=== PATIENT | male | born 1965 | race Two or more races ===

== ENCOUNTER 2016-09-28 10:35 | Inpatient (IN) | payer MEDICAID ==
[2016-09-28] VITALS (8 sets, daily range): BP systolic 96–120; BP diastolic 60–94; BMI 32.0
[~2016-09-28] VITALS: Ht 167.6 cm; Wt 90.0 kg
[2016-09-28 11:34] LABS: BASOPHILS 0.1 % (0.0-2.0); EOSINOPHILS 0 % (0-7); HEMATOCRIT 24.1 % (42.0-54.0); IMMATURE GRANULOCYTES 0.2 % (0-5); LYMPHOCYTES 3.9 % (15-50); MCH 24.3 pg (26.0-34.0); MCHC 29.5 g/dL (31.0-37.0); MCV 82.5 fL (80.0-100.0); MEAN PLATELET VOLUME 11.4 fL (7.4-10.4); MONOCYTES 7.4 % (2-11); NEUTROPHILS 88.4 % (40-80); PLATELET COUNT 61 10x3/uL (130-400); RBC 2.92 10x6/uL (4.20-6.10); RDW 18.4 % (11.5-14.5); WBC 8.7 10x3/uL (4.8-10.8)
[2016-09-28 11:37] LABS: HEMOGLOBIN 7.1 g/dL (13.5-17.5)
[2016-09-28 11:45] LABS: ALBUMIN 3.1 g/dL (3.4-5.0); ANION GAP 25.3 mmol/L (8-16); BILIRUBIN - TOTAL 3.6 mg/dL (0.2-1.3); CALCIUM 8.4 mg/dL (8.5-10.1); CARBON DIOXIDE 22.5 mmol/L (21.0-32.0); CREATININE - SERUM 1.8 mg/dL (0.6-1.3); POTASSIUM - SERUM 3.8 mmol/L (3.5-5.1); PROTEIN - SERUM 6.9 g/dL (6.4-8.2)
[2016-09-28 12:08] LABS: APTT 28.1 SECONDS (22.8-39.4); INR 0.98 (0.85-1.17); PROTIME 12.8 SECONDS (11.6-15.0)
[2016-09-28 12:14] LABS: PLATELET ESTIMATE DECREASED
--- NOTE | 2016-09-28 16:50 | NUR ---
FIRST UNIT OF BLOOD COMPLETE. WILL ADMINSTER NEXT DOSE. NO TRANSFUSION REACTION NOTED.
--- NOTE | 2016-09-28 16:54 | NUR ---
RECIEVED PT FROM ER. ATTACHED TO ICU MONITORS. ASSESSMENT COMPLETE PER FLOWSHEET.
--- NOTE | 2016-09-28 17:00 | NUR ---
SPOKE WITH DR. MENENDEZ. ORDERS RECIEVED.
[2016-09-28] MEDS ORDERED: ZOFRAN ODT4 MG/UDTAB (17:14)
[2016-09-28] MEDS ORDERED: PHENERGAN25 M1 PO (17:15)
[2016-09-28] MEDS ORDERED: HYDROCODON-ACE1 EAC9 PO (17:16)
--- NOTE | 2016-09-28 19:30 | NUR ---
RECEIVED PATIENT LAYING IN BED WITH EYES OPEN WATCHING TV, ASSESSMENT COMPLETED PER FLOWSHEET. EYES PERRLA @ 3MM WITH BRISK RESPONSE, R EYE SCLERA IS REDDENED. ORAL/NASAL MUCOSA IS MOIST AND INTACT, TONGUE IS MIDLINE. S1/S2 NOTED WITH PATIENT NSR ON TELEMETRY WITH HR 84, RHYTHMIC AND REGULAR. BREATHING IS EVEN AND UNLABORED, LUNG SOUNDS ARE CLEAR THROUGHOUT ALL PERSON. ABDOMEN IS DISTENDED AND SOFT, NON-TENDER TO PALPATION WITH BOWEL SOUNDS ACTIVE X4. PATIENT VOIDS TO URINAL WITHOUT ASSISTANCE, SANG URINE NOTED. 20G R FA/L FA NOTED, PATENT WITH FLUIDS INFUSING. FULL ROM ALL EXTREMITIES WITH ALL PULSES PALPABLE. PATIENT DENIES PAIN OR OTHER NEEDS AT THIS TIME, ALL VSS AND AMANDA CONITNUE TO MONITOR.
[2016-09-28 19:45] LABS: HEMATOCRIT 22.3 % (42.0-54.0)
--- NOTE | 2016-09-28 21:10 | NUR ---
1 UNIT PRBC'S BEGUN INFUSING, PATIENT AFEBRILE WITH NO COMPLAINTS OF PAIN. ALL VSS AND WILL CONTINUE TO MONITOR.
--- NOTE | 2016-09-28 23:00 | NUR ---
REASSESSMENT COMPLETED PER FLOWSHEET, PATIENT RESTING IN BED WITH EYES CLOSED. 1 UNIT PRBC INFUSING L FOREARM PIV, NO SWELLING OR PAIN AT INFUSION SITE. S1/S2 NOTED WITH PATIENT NSR ON TELEMETRY, RHYTHMIC AND REGULAR. BREATHING IS EVEN AND UNLABORED, LUNG SOUNDS CLEAR THROUGHOUT. PATIENT DENIES PAIN OR OTHER NEEDS AT THIS TIME, ALL VSS AND WILL CONTINUE TO MONITOR.
[2016-09-28 23:27] LABS: APPEARANCE HAZY (CLEAR); BILIRUBIN 1+ (NEGATIVE); COLOR AMBER (YELLOW); GLUCOSE NEGATIVE (NEGATIVE); KETONE SMALL mg/dL (NEGATIVE); LEUKOCYTE ESTERASE TRACE (NEGATIVE); NITRITE NEGATIVE (NEGATIVE); PROTEIN TRACE mg/dL (NEGATIVE)
[2016-09-28 23:31] LABS: AMORPHOUS SEDIMENT <1+ /lpf (NONE SEEN); BACTERIA MANY /hpf (NONE SEEN); EPITHELIAL CELLS OCC /hpf (0-5); GRANULAR CAST 0-5 /lpf (NONE SEEN); MUCUS >1+ /lpf (NONE SEEN); RED CELLS - URINE OCC /hpf (0-5); WAXY CAST OCC /lpf (NONE SEEN)
[2016-09-29] VITALS (23 sets, daily range): BP systolic 100–136; BP diastolic 54–90; Ht 167.6 cm; Wt 90.0 kg
--- NOTE | 2016-09-29 00:55 | NUR ---
2ND UNIT PRBC'S BEGUN INFUSING, PATIENT AFEBRILE WITH NO C/O PAIN AT THIS TIME. ALL VSS AND WILL CONITNUE TO MONITOR.
--- NOTE | 2016-09-29 01:10 | NUR ---
1ST UNIT PRBC'S COMPLETED, NO SIGNS OF REACTION. NO C/O PAIN AND PATIENT REMAINS AFEBRILE AND WILL CONTINUE TO MONITOR.
--- NOTE | 2016-09-29 03:00 | NUR ---
REASSESSMENT COMPLETED PER FLOWSHEET, PATIENT RESTING IN BED WITH EYES CLOSED. LAB AT BEDSIDE, SAMPLE COLLECTED AND SENT. S1/S2 NOTED WITH PATIENT NSR ON TELEMETRY WITH HR 91, RHYTHMIC AND REGULAR. BREATHING IS EVEN AND UNLABORED WITH OXYGEN SAT 98%. PATIENT IS AFEBRILE, DENIES PAIN OR OTHER NEEDS AT THIS TIME. ALL VSS AND WILL CONTINUE TO MONITOR.
[2016-09-29 04:17] LABS: BASOPHILS 0.3 % (0.0-2.0); EOSINOPHILS 0.1 % (0-7); IMMATURE GRANULOCYTES 0.3 % (0-5); LYMPHOCYTES 13.4 % (15-50); MCH 26.3 pg (26.0-34.0); MCHC 31.8 g/dL (31.0-37.0); MCV 82.7 fL (80.0-100.0); MEAN PLATELET VOLUME 11.8 fL (7.4-10.4); MONOCYTES 5.9 % (2-11); RBC 3.35 10x6/uL (4.20-6.10); RDW 17.5 % (11.5-14.5); WBC 7.7 10x3/uL (4.8-10.8)
[2016-09-29 04:21] LABS: HEMATOCRIT 27.7 % (42.0-54.0); HEMOGLOBIN 8.8 g/dL (13.5-17.5)
[2016-09-29 04:22] LABS: PLATELET COUNT 41 10x3/uL (130-400)
[2016-09-29 04:32] LABS: CALCIUM 7.9 mg/dL (8.5-10.1); CHLORIDE - SERUM 103 mmol/L (98-107); POTASSIUM - SERUM 3.5 mmol/L (3.5-5.1); SODIUM 142 mmol/L (136-145); UREA NITROGEN 34 mg/dL (7-18)
[2016-09-29 04:38] LABS: CALC OSMOLALITY 291 mosm/kg (275-300); CARBON DIOXIDE 33.5 mmol/L (21.0-32.0); GLUCOSE 115 mg/dL (74-106); eGFR NON AFRICAN AMERICAN 84 mL/min (90-120)
--- NOTE | 2016-09-29 08:19 | NUR ---
0700 PT AWAKE ALERT AND ORIENTED X4. ABLE TO OBEY COMMANDS WITH NO NEURO DEFICITS. NORMAL SINUS ON MONITOR. PT DENIES PAIN AT THIS TIME AND STATES THAT HE HAS NO COMPLAINTS. NO REACTION TO BLOOD TRANSFUSION NOTED AT THIS TIME. PT UP TO BEDSIDE COMMODE INDEPENDENTLY. VITAL SIGNS STABLE. WILL CONTINUE TO MONITOR
--- NOTE | 2016-09-29 10:58 | NUR ---
Is the patient Alert and Oriented? Yes 0 * How many steps to enter\exit or inside your home? 5 0 * PCP DR. ROCHA 0 * Pharmacy [facility] * Preadmission Environment Home Alone 0 * ADLs Independent 0 * Equipment None 0 * List name and contact numbers for known caregivers / representatives who currently or will assist patient after discharge: EX-: MORGAN [phone] * Community resources currently utilized None 0 * Additional services required to return to the preadmission environment? No 0 * Can the patient safely return to the preadmission environment? Yes 0 * Has this patient been hospitalized within the prior 30 days at any hospital? No SPOKE WITH PATIENT THIS AM. HE IS AWAKE AND ALERT. PATIENT STATES HE LIVES AT HOME ALONE. HIS MOTHER LIVES NEAR HIM BUT SHE IS ON VACATION FOR THE NEXT 2-3 WEEKS. HE STATES THAT HIS EX- IS HIS NEAREST RELATIVE. PATIENT STATES HIS PCP IS DR. ROCHA. HE GETS HIS MEDS FROM [facility]. HE DENIES USE OF ANY EQUIPMENT AND HAS NEVER HAD HOME HEATLH CARE. PATIENT STATES THERE ARE 5 STEPS TO ENTER HIS HOME. PATIENT STATES HE IS INTERESTED IN ASSISTANCE WITH ALCOHOL REHAB. I HAVE CALLED ARUNA TIERNEY, CORE ASSEMBLY SUPERVISOR, AT [facility] [employer]. I HAVE ASKED FOR CALL BACK TO HAVE HER CONTACT PATIENT. I AM PROVIDING THE PATIENT WITH HER PHONE NUMBER WELL FOR FOLLOW UP. NO FURTHER DISCHARGE NEEDS IDENTIFIED.
--- NOTE | 2016-09-29 12:38 | NUR ---
0900 PHONE CONNECTED IN ROOM AND PT TALKING TO SISTER. HAS NO COMPLAINTS AT THIS TIME. VITAL SIGNS STABLE
--- NOTE | 2016-09-29 12:52 | NUR ---
1100 NO CHANGES IN PT STATUS AT THIS TIME. NO BLOOD TRANSFUSION REACTION NOTED. VITAL SIGNS STABLE.
--- NOTE | 2016-09-29 13:00 | NUR ---
1300 NO CHANGES IN PT STATUS AT THIS TIME. WILL START NEXT UNIT OF BLOOD PER ORDER.
--- NOTE | 2016-09-29 15:16 | NUR ---
1500 BLOOD INFUSING AND PT TOLERATING WELL. DENIES PAIN OR DISCOMFORT. VITAL SIGNS STABLE.
[2016-09-29 17:21] LABS: HEMATOCRIT 34.5 % (42.0-54.0); HEMOGLOBIN 11.3 g/dL (13.5-17.5)
--- NOTE | 2016-09-29 18:34 | NUR ---
1700 NO CHANGES FROM PREVIOUS ASSESSMENT. PT STATUS AND VITAL SIGNS STABLE
--- NOTE | 2016-09-29 19:24 | NUR ---
REPORT RECIEVED. ASSESSMENT COMPLETE EPR FLOW SHEET. VSS. DENIES NEEDS. WILL CONTINUE TO MONITOR.
--- NOTE | 2016-09-29 20:50 | NUR ---
COMPLETE BB LINEN CHANGE COMPLETE. NO NEW FINDINGS. VSS. SISTER CALLED GIVEN UPDATE. NEEDS MET.
--- NOTE | 2016-09-29 23:44 | NUR ---
REASSESSMENT COMPLETE PER FLOW SHEET. VSS. NO NEW CHNAGES. PT SLEEPING COMFORTALBY. WILL CONTINUE TO MONITOR.
[2016-09-30] VITALS (11 sets, daily range): BP systolic 102–124; BP diastolic 63–81
--- NOTE | 2016-09-30 01:02 | NUR ---
PT TRANSFERRED TO CVICU AT THIS TIME, TOLERATED WELL
--- NOTE | 2016-09-30 01:30 | NUR ---
AMBULATED TO ICU BED #5. CONNECTED TO MONITOR. NSR IN THE 60'S ON THE MONITOR. ON ROOM AIR IN THE 93-95%. YELLOW SCLERA NOTED TO EYES BILATERALLY. ABDOMEN DISTENDED AND TIGHT TO PALPATION. DENIES PAIN AT PRESENT. AWAKE, ALERT, ORIENTED X4. PALPABLE PERIPHERAL PULSES. LEFT FA 20G SALINE LOCK. RT FS 20G PIV WITH NS @ 50ML/HR AND SANDOSTATIN GTT @ 10ML/HR MIXED 1250MCG/250ML NS. WILL MONITOR.
[2016-09-30 01:31] LABS: HEMATOCRIT 34.8 % (42.0-54.0); HEMOGLOBIN 11.4 g/dL (13.5-17.5)
[2016-09-30 02:13] LABS: ALBUMIN 2.9 g/dL (3.4-5.0); ALKALINE PHOSPHATASE 226 U/L (46-116); ALT (SGPT) 110 U/L (10-68); CALC OSMOLALITY 281 mosm/kg (275-300); CARBON DIOXIDE 33.3 mmol/L (21.0-32.0); CHLORIDE - SERUM 103 mmol/L (98-107); CREATININE - SERUM 0.8 mg/dL (0.6-1.3); GLUCOSE 124 mg/dL (74-106); POTASSIUM - SERUM 3.5 mmol/L (3.5-5.1); PROTEIN - SERUM 6.3 g/dL (6.4-8.2); SODIUM 140 mmol/L (136-145); UREA NITROGEN 19 mg/dL (7-18); eGFR NON AFRICAN AMERICAN > 90 mL/min (90-120)
--- NOTE | 2016-09-30 03:00 | NUR ---
USER EXPERIENCE MANAGER LIGHT. ASSISTED UP TO BATHROOM WITH IV POLE. DISCONNECTED FROM MONITORING EQUIPMENT. DENIES HAVING ANY BM'S OR ANYTHING BLOODY IN NATURE. REPORTS HAVING A BLOODY NOSE AFTER BLOWING HIS NOSE. TISSUES GIVEN FOR FUTURE USE. NO BLOOD SEEN AT THIS TIME. ASSESSMENT COMPLETED. SEE REASSESSMENT FLOWSHEET. APPLIED SCD'S TO LE'S THEN DECIDED TO TAKE PANTS OFF. UNDERWEAR REMAINS ON. APPLIED SCD MACHINE. RECONNECTED TO MONITORING EQUIPMENT. WILL MONITOR.
--- NOTE | 2016-09-30 05:00 | NUR ---
LEMON-GYLCERIN SWABS GIVEN FOR DRY MOUTH DUE TO NPO STATUS. WILL MONITOR.
--- NOTE | 2016-09-30 07:40 | NUR ---
DR. CONNER AT BEDSIDE SPEAKING AT LENGTH WITH PT. NO CURRENT NEEDS.
--- NOTE | 2016-09-30 08:36 | NUR ---
Nutrition follow-up: Pt is now NPO for TIPS vs EGD with banding today Labs reviewed Wt: 198# RDN will monitor patients diet advancement and tolerance.
[2016-09-30 08:53] LABS: HEMATOCRIT 35.3 % (42.0-54.0); HEMOGLOBIN 11.5 g/dL (13.5-17.5)
[2016-09-30 09:15] LABS: ALBUMIN 2.9 g/dL (3.4-5.0); ALKALINE PHOSPHATASE 223 U/L (46-116); ALT (SGPT) 108 U/L (10-68); BILIRUBIN - DIRECT 2.06 mg/dL (0.00-0.30); BILIRUBIN - INDIRECT 0.83 mg/dL (0.00-1.00); BILIRUBIN - TOTAL 2.89 mg/dL (0.2-1.3); PROTEIN - SERUM 6.1 g/dL (6.4-8.2)
[2016-09-30 09:16] LABS: APTT 32.5 SECONDS (22.8-39.4)
[2016-09-30 09:21] LABS: BASOPHILS 0.4 % (0.0-2.0); EOSINOPHILS 1.6 % (0-7); HEMOGLOBIN 11.4 g/dL (13.5-17.5); IMMATURE GRANULOCYTES 0.4 % (0-5); LYMPHOCYTES 16.8 % (15-50); MCH 27.5 pg (26.0-34.0); MCHC 32.6 g/dL (31.0-37.0); MCV 84.3 fL (80.0-100.0); MONOCYTES 4.6 % (2-11); NEUTROPHILS 76.2 % (40-80); RDW 17.3 % (11.5-14.5)
[2016-09-30 09:25] LABS: INR 1.5 (0.85-1.17)
[2016-09-30 09:32] LABS: RBC 4.15 10x6/uL (4.20-6.10); WBC 5.1 10x3/uL (4.8-10.8)
[2016-09-30 09:35] LABS: PLATELET COUNT 40 10x3/uL (130-400)
[2016-09-30 09:35] LABS: CALC OSMOLALITY 284 mosm/kg (275-300); CALCIUM 7.9 mg/dL (8.5-10.1); CHLORIDE - SERUM 104 mmol/L (98-107); CREATININE - SERUM 0.7 mg/dL (0.6-1.3); GLUCOSE 141 mg/dL (74-106); POTASSIUM - SERUM 3.6 mmol/L (3.5-5.1); SODIUM 141 mmol/L (136-145); UREA NITROGEN 18 mg/dL (7-18); eGFR NON AFRICAN AMERICAN > 90 mL/min (90-120)
[2016-09-30 12:34] LABS: APPEARANCE CLEAR (CLEAR); BACTERIA FEW /hpf (NONE SEEN); BILIRUBIN 3+ (NEGATIVE); COLOR ORANGE (YELLOW); EPITHELIAL CELLS 0-5 /hpf (0-5); GLUCOSE NEGATIVE (NEGATIVE); KETONE NEGATIVE (NEGATIVE); LEUKOCYTE ESTERASE TRACE (NEGATIVE); MUCUS >1+ /lpf (NONE SEEN); NITRITE NEGATIVE (NEGATIVE); PROTEIN NEGATIVE (NEGATIVE); RED CELLS - URINE RARE /hpf (0-5); SPECIFIC GRAVITY 1.015 (1.005-1.020); WHITE CELLS - URINE OCC /hpf (0-5)
--- NOTE | 2016-09-30 12:45 | NUR ---
BACK TO BED FROM LUNCH. AWAITING DR. PHILIP. NO CURRENT NEEDS.
--- NOTE | 2016-09-30 15:05 | NUR ---
SPOKE WITH DR. CONNER. STATES HE WOULD LIKE TO SET TIPS PROCEDURE UP OUTPATIENT AND DC PT HOME TODAY. DR. GEMMA LUJAN.
--- NOTE | 2016-09-30 16:09 | NUR ---
ANNE MARIE RN AT BEDSIDE SPEAKING IN DEPTH AND AT LENGTH WITH PT CONCERNING STOPPING DRINKING AND FOLLOW UP APPOINTMENTS FOR MONDAY AT DR. CONNER AND MONDAY AT DR. PHILIP'S OFFICES.
[2016-09-30] MEDS ORDERED: COREG6.25 MG PO ×2 (16:46→17:02)
--- NOTE | 2016-09-30 17:00 | NUR ---
SPOKE WITH JALYN IN SCHEDULING AT DR. CONNER'S OFFICE. APPOINTMENT FOR MONDAY AT 11:50. LABS ORDERED PER DR. PHILIP CBC, CMP, PT/INR, AMMONIA. REQUESTED RESULTS TO BE FAXED TO DR. PHILIP AT [phone]. CONFIRMED AND READ BACK VERIFICATION OF APPOINTMENT TIME, LABS ORDERED AND DR. PHILIP'S FAX NUMBER. MEDICATIONS CALLED IN TO [facility] SPOKE WITH MARI.
[2016-09-30] MEDS ORDERED: PROTONIX40 MG PO (17:03)
--- NOTE | 2016-09-30 17:54 | CN ---
PATIENT NAME:ANITA SIBLEY MEDICAL RECORD: [id number] : 69 LOCATION:CAPOCV05 ADMIT DATE: 09/28/16 ACCOUNT: [id number] CONSULTING PHYSICIAN: JESSY MENENDEZ MD REFERRING PHYSICIAN: MICHAEL CONNER MD DATE OF CONSULTATION: 09/29/2016 REFERRING PHYSICIAN: Robb Lakhani MD (Bill) HISTORY OF PRESENT ILLNESS: The patient is a 51-year-old male with a long history of a known alcoholic cirrhosis with esophageal varices, who was admitted with dizziness and near syncope and hematemesis. Denies melena. He had a recent episode of bleeding about a month or 2 ago and underwent an EGD with banding at that time. That EGD revealed ____. He has had continued problems with alcohol abuse over the past several years that I have been following him. However, he claims he has not drank in the past month. PAST MEDICAL HISTORY: Remarkable for diabetes and the above. ALLERGIES: No known drug allergies. HOME MEDICATIONS: Include p.r.n. hydrocodone and Zofran. He denies NSAID use. He does have a history of reflux esophagitis in the past. SOCIAL HISTORY: The patient is nonsmoker. Again, he does drink alcohol, but apparently stopped a month ago. REVIEW OF SYSTEMS: Noncontributory other than in the HPI. PHYSICAL EXAMINATION: GENERAL: Reveals a middle-aged white male, in mild distress. VITAL SIGNS: Stable. He is afebrile. CHEST: Clear. HEART: Regular rate and rhythm. ABDOMEN: Soft and nontender. EXTREMITIES: No edema. LABORATORY DATA: Reveals normal electrolytes, BUN 30, creatinine 1.8. Total bilirubin 3.6, AST 141, ALT 52, alkaline phosphatase 311, amylase 58, lipase 155, albumin is 3.1. INR 0.98. White count 8000, hematocrit 24, MCV of 82, and platelet count 61,000. Lactic acid is high at 12.2. IMPRESSION: Probable recurrent esophageal variceal bleed due to his known alcoholic cirrhosis. RECOMMENDATION: 1. IV Sandostatin. 2. IV Protonix. 3. Transfuse to hematocrit in the high 20s. 4. In light of his failed banding times 3 in the past, I am going recommend a consult with interventional radiologist for possible TIPS procedure. TRANSINT:[id number] Voice Confirmation ID: [id number] DOCUMENT ID: [id number] CONSULT REPORT [id number] ANITA SIBLEY JOHN MD at 1754 CC: ROBB LAKHANI MD [id number] DICTATION DATE: 09/29/161919 INDUSTRIAL STAFF NURSE: 09/30/169 ADM IN [facility] [address] [place] [address]
--- NOTE | 2016-09-30 18:23 | NUR ---
BILATERAL IV'S DC'D CATHS FULLY INTACT. DC INSTRUCTIONS REVIEWED WITH PT. ALL QUESTIONS ANSWERED. PT VERBALIZES UNDERSTANDING OF INSTRUCTIONS AND REPEATS BACK FOLLOW UP APPOINTMENT TIMES. PT DC'D HOME VIA WHEELCHAIR. STATES HE HAS CALLED HIS FAMILY TO NOTIFY THEM OF HIS DISCHARGE HOME.
== END 2016-09-30 18:31 | disposition home or self-care (01) | DRG 377 ==
LOC: D.ER 10:35 → D.ICU 15:27 → D.CVICU 15:27
PROVIDERS: Emergency Medicine; Internal Medicine Gastroenterology; Physician Assistant; Radiology Vascular & Interventional Radiology; Specialist; ADMIT Family Medicine
DX: K92.2 Gastrointestinal hemorrhage, unspecified (principal); I85.11 Secondary esophageal varices with bleeding; D62 Acute posthemorrhagic anemia; K70.31 Alcoholic cirrhosis of liver with ascites; E11.9 Type 2 diabetes mellitus without complications

== ENCOUNTER 2016-10-06 05:27 | Outpatient (CLI) | payer MEDICAID ==
[~2016-10-06] VITALS: Ht 167.6 cm; Wt 95.5 kg
[~2016-10-06 05:27] MED LIST: COREG6.25 MG PO; HYDROCODON-ACE1 EAC9 PO; PHENERGAN25 M1 PO; PROTONIX40 MG PO; ZOFRAN ODT4 MG/UDTAB
[2016-10-06] MEDS ORDERED: AMOXICILLIN875 MG PO (07:19)
[2016-10-06 07:22] LABS: BASOPHILS 0.7 % (0.0-2.0); EOSINOPHILS 2.3 % (0-7); HEMATOCRIT 33.8 % (42.0-54.0); HEMOGLOBIN 10.7 g/dL (13.5-17.5); IMMATURE GRANULOCYTES 0.2 % (0-5); MCH 27.4 pg (26.0-34.0); MCHC 31.7 g/dL (31.0-37.0); MCV 86.7 fL (80.0-100.0); MEAN PLATELET VOLUME 11.4 fL (7.4-10.4); MONOCYTES 15.9 % (2-11); NEUTROPHILS 56.9 % (40-80); RDW 19.6 % (11.5-14.5); WBC 4.3 10x3/uL (4.8-10.8)
[2016-10-06 07:23] LABS: PLATELET COUNT 122 10x3/uL (130-400)
[2016-10-06 07:29] VITALS: BP 100/50; Ht 167.6 cm; Wt 95.5 kg
[2016-10-06 07:30] LABS: INR 1.18 (0.85-1.17); PROTIME 14.9 SECONDS (11.6-15.0)
[2016-10-06 07:31] LABS: APTT 36.2 SECONDS (22.8-39.4)
[2016-10-06 07:39] LABS: ALBUMIN 2.9 g/dL (3.4-5.0); ALKALINE PHOSPHATASE 247 U/L (46-116); ALT (SGPT) 74 U/L (10-68); BILIRUBIN - TOTAL 1.21 mg/dL (0.2-1.3); CALC OSMOLALITY 276 mosm/kg (275-300); CALCIUM 8.7 mg/dL (8.5-10.1); CARBON DIOXIDE 24.9 mmol/L (21.0-32.0); CHLORIDE - SERUM 103 mmol/L (98-107); CREATININE - SERUM 0.7 mg/dL (0.6-1.3); GLUCOSE 141 mg/dL (74-106); POTASSIUM - SERUM 3.9 mmol/L (3.5-5.1); PROTEIN - SERUM 6.5 g/dL (6.4-8.2); SODIUM 137 mmol/L (136-145); UREA NITROGEN 14 mg/dL (7-18); eGFR NON AFRICAN AMERICAN > 90 mL/min (90-120)
--- NOTE | 2016-10-06 09:08 | NUR ---
RECEIVED FROM IR. MALIA ABDOMINAL DRESSING C/D/I. SEE POST PROCEDURE VITAL SIGN SHEET FOR VITAL SIGNS.
--- NOTE | 2016-10-06 09:49 | NUR ---
UP TO BATHROOM, GAIT STEADY. VOIDED WITHOUT DIFFICULTY. SPOKE WITH CELSO NIETO RN REGARDING DC TIME, STATES 2 HOURS.
[2016-10-07 09:17] LABS: HEPATITIS C ANTIBODY <0.1 (0.0-0.9)
== END 2016-10-06 11:00 | disposition home or self-care (01) ==
LOC: D.OPS 05:27 → D.SP 08:00 → D.OPS 11:00
PROVIDERS: Specialist
DX: R18.8 Other ascites (principal); K74.60 Unspecified cirrhosis of liver

== ENCOUNTER 2016-10-24 05:05 | Inpatient (IN) | payer MEDICAID ==
[~2016-10-24] VITALS: Ht 167.6 cm; Wt 84.1 kg
[2016-10-24] VITALS (9 sets, daily range): BP systolic 97–119; BP diastolic 45–69; Ht 167.6 cm; Wt 84.1 kg
--- NOTE | ~2016-10-24 | HEMODYNAMI ---
PATIENT:ANITA SIBLEY MEDICAL RECORD: [id number] : 69 LOCATION:D. D.2236 ADMISSION DATE: 10/24/16 Generatedon:10/24/201615:10 Patient name: ANITA SIBLEY Patient #: [id number] SSN: D OB: 1965 Date of study: 10/24/2016 Page: Of Hemodynamic Procedure Report Patient Data Patient Demographics Procedure consent was obtained First Name: ANITA Gender: Male Last Name: TOÑITO : 1965 Patient #: [id number] Age: 51 year(s) Race: Other Additional ID: [id number] Contact details Address: [address] [place] [address] State: [place] City: [place] Zip code: [address] Admission Admission Data Admission Date: 10/24/2016 Admission Time: 5:05 Room #: D.2236 Procedure Procedure Types Cath Procedure Peripheral Cath Diagnostic Procedure Miscellaneous Procedure Description Procedure Date Procedure Date: 10/24/2016 Procedure Start Time: 13:07 Procedure Staff Name Function Sridhar Byrne MD Performing Physician Yoko Antonio RT Scrub Haley Beckwith RN Nurse Stefan Blank RT Monitor Girish Patterson MD Additional personnel Procedure Data Cath Procedure Fluoroscopy Diagnostic fluoroscopy Total fluoroscopy Time: time: 13.9 min 13.9 min Diagnostic fluoroscopy Total fluoroscopy dose: 645 dose: 645 mGy mGy Contrast Material Contrast Material Type Amount (ml) Isovue 300 142 Diagnostic catheters Device Type Used For End Catheter Placement Merit UHF Pigtail VESSEL SIZING 5Fr 65CM catheter Merit ULTRA BOLUS FLUSH 5Fr 90CM catheter Procedure Medications Medication Administration Route Dosage Ancef (1Gm/50ml NS) I.V.P.B 1 g Hemodynamics Rest Heart Rate: 47 (bpm) Pressure Samples Time Site Value (mmHg) Purpose Heart Use Rate(bpm) 13:48 Portal 29/27(27) Snapshot 51 14:36 Portal (25) Snapshot 59 14:39 RA 13/11(10) Snapshot 63 Snapshots Pre Cath Intra NCS Post Cath Vital Signs Time Heart Resp SPO2 NIBP (mmHg) Rhythm Pain Sedation Rate (ipm) (%) Status Level (bpm) 12:41:52 48 8 98 115/68(80) NSR 0 (11) 10(A) , No pain 12:46:10 43 22 100 127/71(95) NSR 0 (11) 10(A) , No pain 12:50:28 67 19 90 110/54(73) NSR 0 (11) 10(A) , No pain 12:54:40 52 17 97 118/57(103) NSR 0 (11) 10(A) , No pain 12:58:52 47 11 99 110/63(91) NSR 0 (11) 9(A) , No pain 13:03:02 48 10 98 118/61(94) NSR 0 (11) 9(A) , No pain 13:07:55 49 10 99 114/61(87) NSR 0 (11) 9(A) , No pain 13:12:05 55 11 99 121/63(94) NSR 0 (11) 9(A) , No pain 13:16:17 71 10 95 112/66(87) NSR 0 (11) 9(A) , No pain 13:21:08 50 15 98 117/57(88) NSR 0 (11) 9(A) , No pain 13:25:17 51 12 98 114/67(85) NSR 0 (11) 9(A) , No pain 13:29:27 43 16 99 110/66(83) NSR 0 (11) 9(A) , No pain 13:33:33 60 14 99 119/73(96) NSR 0 (11) 9(A) , No pain 13:37:43 58 21 99 108/68(85) NSR 0 (11) 9(A) , No pain 13:41:51 51 19 98 123/62(92) NSR 0 (11) 9(A) , No pain 13:46:07 52 19 98 113/58(86) NSR 0 (11) 9(A) , No pain 13:50:17 48 21 98 111/61(84) NSR 0 (11) 9(A) , No pain 13:54:25 61 19 96 105/65(89) NSR 0 (11) 9(A) , No pain 13:58:33 43 22 99 110/60(83) NSR 0 (11) 9(A) , No pain 14:02:40 53 20 98 117/65(95) NSR 0 (11) 9(A) , No pain 14:06:50 47 18 99 114/67(88) NSR 0 (11) 9(A) , No pain 14:11:02 44 19 100 106/58(82) NSR 0 (11) 9(A) , No pain 14:15:08 60 20 97 108/68(87) NSR 0 (11) 9(A) , No pain 14:19:14 57 18 96 106/67(95) NSR 0 (11) 9(A) , No pain 14:23:21 51 20 100 117/60(93) NSR 0 (11) 9(A) , No pain 14:27:31 51 18 98 118/65(93) NSR 0 (11) 9(A) , No pain 14:31:39 52 23 99 101/69(87) NSR 0 (11) 9(A) , No pain 14:35:41 56 25 92 117/70(95) NSR 0 (11) 9(A) , No pain 14:39:53 66 24 94 115/63(90) NSR 0 (11) 9(A) , No pain 14:44:07 56 27 94 109/55(85) NSR 0 (11) 9(A) , No pain 14:48:17 58 20 95 111/60(87) NSR 0 (11) 9(A) , No pain 14:52:25 51 18 96 113/67(92) NSR 0 (11) 9(A) , No pain 14:57:24 56 24 94 109/51(63) NSR 0 (11) 9(A) , No pain 15:01:34 52 25 90 113/61(89) NSR 0 (11) 9(A) , No pain 15:09:33 No Cuff NSR 0 (11) 9(A) , No pain Medications Time Medication Route Dose Verified Delivered Reason Notes Effect iveness by by 12:58:44 Ancef I.V.P.B 1 g Girish Stout PROPHYLACTIC (1Gm/50ml Yesenia PATEL) Procedure Log Time Note 12:19:30 Stefan Blank RT (R) (CV) sent for patient. Start room use. 12:19:43 Time tracking: Regular hours 12:19:48 Plan of Care:Hemodynamics will remain stable., Cardiac rhythm will junaid in stable., Comfort level will be maintained., Respiratory function will remain adequate., Patient/ family verbilizes understanding of procedure., Procedure tolerated without complication., Recovers from procedure without complications.. 12:19:56 Warm blankets applied, and arron hugger turned on for patient comfort. 12:19:57 Correct patient and procedure confirmed by team. 12:19:59 Signed procedure consent form obtained from spouse. 12:20:00 ECG and BP/O2 sat monitors applied to patient. 12:20:04 Full Disclosure recording started 12:20:04 ------- 12:20:09 H&P Date Dictated: 10/24/2016 H&P Addendum completed by physician on day of procedure. (MUST COMPLETE FOR ALL OUTPATIENTS). 12:20:11 Pre-procedure instructions explained to patient. 12:20:11 Pre-op teaching completed and patient verbalized understanding. 12:20:13 Family in waiting room. 12:20:14 Patient NPO since Midnight. 12:20:18 ------- 12:20:34 SEE ANESTHESIA NOTE FOR PRE PROCEDURE TIVA 12:20:35 ------- 12:20:41 Use device set IR Diagnostic 12::42 Bag Decanter opened to sterile field. 12:20:42 Sterile Angiographic Pack opened to sterile field. 12:20:43 Acist Manifold opened to sterile field. 12:20:44 Acist Hand Control opened to sterile field. 12:20:45 Acist Syringe opened to sterile field. 12:35:28 Dr Byrne here. Talking with patient 12:40:42 Vital chart was started 12:40:43 Baseline sample Acquired. 12:40:49 Rhythm: sinus bradycardia 12:45:19 HERE FOR ANESTHESIA 12:49:24 Zero performed for pressure channel P1 12:58:44 Ancef (1Gm/50ml NS) 1 g I.V.P.B was administered by Girish Patterson MD; PROPHYLACTIC; 13:06:50 Physician arrived 13:06:51 --------ALL STOP TIME OUT------ 13:06:52 Final Timeout: patient, procedure, and site verified with staff and maxine casillas. All members of the team are in agreement. 13:06:58 Right neck site verified by team. 13:07:02 Right abdomen site verified by team. 13:07:06 Physical assessment completed. ASA score P 3 - A patient with severe sy stemic disease as per Girish Patterson MD. 13:07:11 Sedation plan: IV Moderate Sedation Propofol 13:07:31 Procedure started. 13:07:48 Local anesthetic to right IJ vein with Lidocaine 1% by Sridhar Byrne MD.INITIAL ACCESS ONLY 13:13:07 A Merit [facility] Pigtail VESSEL SIZING 5Fr 65CM catheter was advanced over t he wire and used for . 13:13:08 BasixTOUCH Inflation Syringe opened to sterile field. 13:13:10 TUBING, CONTRAST INJCTN HI PRES opened to sterile field. 13:13:12 TUBING, CONTRAST INJCTN HI PRES opened to sterile field. 13:13:12 [employer] Inc DOC .035 guide wire opened to sterile field. 13:13:13 PERCUTANEOUS ENTRY 19GA needle opened to sterile field. 13:13:14 Cook LATIF 260 guide wire opened to sterile field. 13:24:[address] .035 145 glide wire opened to sterile field. 13:24:11 Terumo 5FR STRAIGHT 65CM glide catheter opened to sterile field. 13:26:09 [place] Sci AMPLATZ Super stiff 260cm guide wire opened to sterile field . 13:29:07 Cook BENTSON 145cm guide wire opened to sterile field. 13:32:41 Terumo 5FR Senior Biostatistician H1 100CM glide catheter opened to sterile field. 13:39:03 Inflation number: 1 A Yeahka Powerflex Pro 8.0 x 40 x 80cm balloon was prepped and advanced across the Undefined1, then inflated to 0 ARCENIO for 0:00 (min:sec). 13:39:32 Zero performed for pressure channel P1 13:39:41 Zero performed for pressure channel P1 13:39:49 Zero performed for pressure channel P1 13:39:55 Zero performed for pressure channel P1 13:40:01 Zero performed for pressure channel P1 13:40:40 Zero performed for pressure channel P1 13:40:48 Zero performed for pressure channel P1 13:41:25 Zero performed for pressure channel P1 13:41:30 Zero performed for pressure channel P1 13:41:44 Zero performed for pressure channel P1 13:42:05 Zero performed for pressure channel P1 13:42:32 Zero performed for pressure channel P1 13:43:38 Zero performed for pressure channel P1 13:43:39 Zero performed for pressure channel P1 13:43:42 Zero performed for pressure channel P1 13:43:45 Zero performed for pressure channel P1 13:43:46 Zero performed for pressure channel P1 13:43:46 Zero performed for pressure channel P1 13:43:47 Zero performed for pressure channel P1 13:43:47 Zero performed for pressure channel P1 13:44:22 Zero performed for pressure channel P1 13:44:23 Zero performed for pressure channel P1 13:44:43 Zero performed for pressure channel P1 13:44:44 Zero performed for pressure channel P1 13:44:45 Zero performed for pressure channel P1 13:44:46 Zero performed for pressure channel P1 13:45:31 Zero performed for pressure channel P1 13:45:46 Zero performed for pressure channel P1 13:45:56 Zero performed for pressure channel P1 13:46:26 Zero performed for pressure channel P1 13:47:19 Zero performed for pressure channel P1 13:47:21 Zero performed for pressure channel P1 13:47:56 Zero performed for pressure channel P1 14:27:41 -ADVANC ED 14:27:43 PCI Cath status Elective 14:34:17 A [employer] ULTRA BOLUS FLUSH 5Fr 90CM catheter was advanced over the wire and used for . 14:35:03 Zero performed for pressure channel P1 14:35:40 Zero performed for pressure channel P1 14:42:21 Procedure ended.(Physican Out) 14:43:51 Fluoroscopy time 13.90 minutes. 14:43:58 Flurop Dose total: 645 14:43:58 Fluoroscopy dose: 645 mGy 14:44:10 Contrast amount:Isovue 300 142ml. 14:44:12 Sharps counted by scrub and verified by R.N. 14:44:18 Post-op/insertion site Right Jugular vein dressed using a 4 x 4 and Teg aderm. 14:44:23 Post right IJ vein:stable 14:44:29 Post-procedure physical assessment completed. ASA score P 3 - A patient with severe systemic disease as per Girish Patterson MD. 14:44:33 Post procedure rhythm: unchanged. 14:44:34 Post procedure instruction explained to patient.Patient verbalizes understanding. 15:09:10 Procedure and supply charges have been captured, reviewed, submitted an d are correct. 15:09:15 Report given to Med/Surg. 15:09:19 Patient transfered to Med/Surg with Bed. 15:10:04 Vital chart was stopped Intervention Summary Intervention Notes Time ActionType Lesion and Equipment Action# Pressure Duration Attributes Used 13:39:03 Inflate Undefined1 Cordis 1 0 00:00 balloon Powerflex Pro 8.0 x 40 x 80cm balloon Device Usage Item Name Manufacture Quantity Catalog Number Hospital Part Current Mini mal Lot# / Charge Number Stock Stock Serial# Code Bag Decanter Microtek 1 2002S [id number] 04990 [id number] 5 Medical Inc. Sterile Cardinal [address] 354061 220540 5 Angiographic Health Pack Acist Acist 1 93813 429543 379592 417245 5 Manifold Medical Systems Inc Acist Hand Acist 1 67982 431656 070401 674572 5 Control Medical Systems Inc Acist Acist 1 72299 066380 398581 236452 20 Syringe Medical Systems Inc Merit UHF Merit 1 7602-20M65 995260 249071 5 Pigtail Medical VESSEL SIZING 5Fr 65CM catheter BasixTOUCH Merit 1 VV7309 096167 735672 942326 5 Inflation Medical Syringe TUBING, Merit 2 [id number] 249741 538321 683316 5 CONTRAST Medical INJCTN HI PRES Cook [facility] 1 D97396 603504 206188 5 [id number] .035 guide wire PERCUTANEOUS [facility] 1 J90942 750689 979108 5 ENTRY 19GA needle Cook [facility] 1 C84056 250073 893509 5 [id number] 260 guide wire Cook [facility] 1 H31884 878451 580572 5 [id number] ROADRUNNER .035 145 glide wire Terumo 5FR Terumo 1 CG505 710344 128101 5 STRAIGHT 65CM glide catheter [employer] [place] 1 [id number] 245792 38505 911438 5 [id number] AMPLATZ Scientific Super stiff 260cm guide wire Cook [facility] 1 S40563 135193 630670 5 [id number] 145cm guide wire Terumo 5FR [place] 1 CG513 000092 784155 5 Senior Biostatistician Scientific H1 100CM glide catheter Cordis Cardinal 1 [id number] 204791 660346 862783 5 Powerflex Health Pro 8.0 x 40 x 80cm balloon Merit ULTRA Merit 1 [id number] 810466 561548 5 BOLUS FLUSH Medical 5Fr 90CM catheter Signature Audit [place] Stage Time Signature Unsigned Intra-Procedure 10/24/2016 Stefan 3:10:01 PM Sh[place]ield RT (R) (CV) Signatures Monitor : Stefan Signature : [place] RT Date : Time : [place] [address] [address] [place] [address]
[~2016-10-24 05:05] MED LIST changes: +AMOXICILLIN875 MG PO
[2016-10-24 06:27] LABS: BASOPHILS 0.6 % (0.0-2.0); EOSINOPHILS 5.2 % (0-7); HEMATOCRIT 37.2 % (42.0-54.0); HEMOGLOBIN 11.9 g/dL (13.5-17.5); IMMATURE GRANULOCYTES 0.2 % (0-5); LYMPHOCYTES 22.7 % (15-50); MCH 27.6 pg (26.0-34.0); MCV 86.3 fL (80.0-100.0); MEAN PLATELET VOLUME 11.9 fL (7.4-10.4); MONOCYTES 8.7 % (2-11); NEUTROPHILS 62.6 % (40-80); PLATELET COUNT 99 10x3/uL (130-400); RBC 4.31 10x6/uL (4.20-6.10); RDW 17.7 % (11.5-14.5); WBC 5.2 10x3/uL (4.8-10.8)
[2016-10-24 06:43] LABS: INR 1.08 (0.85-1.17); PROTIME 13.9 SECONDS (11.6-15.0)
[2016-10-24 06:44] LABS: APTT 37.8 SECONDS (22.8-39.4)
[2016-10-24 06:47] LABS: ALKALINE PHOSPHATASE 244 U/L (46-116); ALT (SGPT) 69 U/L (10-68); CALC OSMOLALITY 278 mosm/kg (275-300); CALCIUM 9.1 mg/dL (8.5-10.1); CARBON DIOXIDE 26.4 mmol/L (21.0-32.0); CHLORIDE - SERUM 104 mmol/L (98-107); CREATININE - SERUM 0.7 mg/dL (0.6-1.3); GLUCOSE 134 mg/dL (74-106); POTASSIUM - SERUM 3.7 mmol/L (3.5-5.1); PROTEIN - SERUM 7.1 g/dL (6.4-8.2); SODIUM 138 mmol/L (136-145); UREA NITROGEN 14 mg/dL (7-18); eGFR NON AFRICAN AMERICAN > 90 mL/min (90-120)
--- NOTE | 2016-10-24 07:14 | NUR ---
0637 PT STATES DID NOT TAKE USUAL HS DOSE OF CARVEDILOL 6.25NG ON 10/23/16. BP 113/62. DR. JENNINGS BEEPED. RETURNED CALL. INFORMED NO BETA KAT LAST NIGHT PER Willard RAHMAN. STATES NO BETA KAT NEEDED AT THIS TIME. Ale BARFIELD R.N.
--- NOTE | 2016-10-24 07:19 | NUR ---
0719 PLATELET COUNT 99. CALLED TO CELSO NIETO R.N. SPECIALS/RADIOLOGY. Ale BARFIELD R.N.
--- NOTE | 2016-10-25 00:51 | NUR ---
2000)REC'D. IN BED DRSG DRY AND INTACT TO RT. NECK.02 SATS 96%. ABD LARGELY DISTENDED AND FIRM. DENIES NAUSEA AT PRESENT TIME.WILL CONTINUE TO MONTOR FOR ANY CHGES. AND FOLLOW CURRENT PLAN OF CARE.
[2016-10-25 01:32] VITALS: BP 111/52
[2016-10-25 04:00] VITALS: BP 126/57
--- NOTE | 2016-10-25 04:15 | NUR ---
RESTING WITH EYES CLOSED, RESP WITH EASE, NO DISTRESS NOTED, SR'S UP, CL IN REACH
[2016-10-25 04:58] LABS: BASOPHILS 0.3 % (0.0-2.0); HEMATOCRIT 38.1 % (42.0-54.0); HEMOGLOBIN 12.1 g/dL (13.5-17.5); IMMATURE GRANULOCYTES 0.3 % (0-5); LYMPHOCYTES 17.1 % (15-50); MCH 27.3 pg (26.0-34.0); MCHC 31.8 g/dL (31.0-37.0); MEAN PLATELET VOLUME 11.8 fL (7.4-10.4); NEUTROPHILS 74.3 % (40-80); RBC 4.43 10x6/uL (4.20-6.10); RDW 17.6 % (11.5-14.5)
[2016-10-25 05:13] LABS: PLATELET COUNT 121 10x3/uL (130-400); WBC 7.9 10x3/uL (4.8-10.8)
[2016-10-25 05:14] LABS: ALBUMIN 2.9 g/dL (3.4-5.0); ALKALINE PHOSPHATASE 190 U/L (46-116); ALT (SGPT) 68 U/L (10-68); BILIRUBIN - DIRECT 0.43 mg/dL (0.00-0.30); BILIRUBIN - INDIRECT 0.63 mg/dL (0.00-1.00); BILIRUBIN - TOTAL 1.06 mg/dL (0.2-1.3); CALC OSMOLALITY 274 mosm/kg (275-300); CALCIUM 8.8 mg/dL (8.5-10.1); CARBON DIOXIDE 25.8 mmol/L (21.0-32.0); CHLORIDE - SERUM 103 mmol/L (98-107); CREATININE - SERUM 0.7 mg/dL (0.6-1.3); GLUCOSE 132 mg/dL (74-106); POTASSIUM - SERUM 3.5 mmol/L (3.5-5.1); PROTEIN - SERUM 6.7 g/dL (6.4-8.2); SODIUM 137 mmol/L (136-145); eGFR NON AFRICAN AMERICAN > 90 mL/min (90-120)
[2016-10-25 05:15] LABS: UREA NITROGEN 9 mg/dL (7-18)
--- NOTE | 2016-10-25 07:40 | NUR ---
PT ASSESSMENT COMPLETE AWAKE AND ALERT ORIETED X 3 COMPLAINS OF TENDERNESS TO ABDOMEN WITH PALPATION. DRESSING CLEAN DRY AND INTACT TO RIGHT NECK
[2016-10-25 08:22] VITALS: BP 122/63
[2016-10-25] MEDS ORDERED: CHRONULAC30 ML PO (10:30)
--- NOTE | 2016-10-25 12:48 | NUR ---
PT DISCHARGED EXPRESSED UNDERSTANDING OF DISCHARGE INSTRUCTIONS. PIV DISCONTINUED NO DIFFICULTY NOTED TOLERATED WELL. DISCHARGED VIA WHEELCHAIR TO PRIVATE VEHICLE.
== END 2016-10-25 12:49 | disposition home or self-care (01) | DRG 407 ==
LOC: D.SDCHOLD 05:05 → D.MS 14:53
PROVIDERS: ADMIT Specialist
PROC: 06183DY (ICD-10-PCS; principal; 2016-10-24 13:00)
DX: K70.31 Alcoholic cirrhosis of liver with ascites (principal)

== ENCOUNTER → 2016-10-27 11:05 | Outpatient (CLI) | payer MEDICAID ==
[2016-10-24 15:37] VITALS: BMI 29.9
[~2016-10-27 11:05] MED LIST changes: +CHRONULAC30 ML PO; +CIPRO500 MG PO; +FLAGYL500 MG PO; +XIFAXAN550 MG PO
[2016-10-27 11:33] LABS: BASOPHILS 0.4 % (0.0-2.0); EOSINOPHILS 3.4 % (0-7); HEMATOCRIT 40.3 % (42.0-54.0); IMMATURE GRANULOCYTES 0.2 % (0-5); LYMPHOCYTES 21.4 % (15-50); MCH 28.1 pg (26.0-34.0); MCHC 32.3 g/dL (31.0-37.0); MCV 87.2 fL (80.0-100.0); MEAN PLATELET VOLUME 11.4 fL (7.4-10.4); MONOCYTES 9.5 % (2-11); NEUTROPHILS 65.1 % (40-80); PLATELET COUNT 125 10x3/uL (130-400); RBC 4.62 10x6/uL (4.20-6.10); RDW 18.2 % (11.5-14.5); WBC 8.3 10x3/uL (4.8-10.8)
[2016-10-27 11:47] LABS: ALBUMIN 3.3 g/dL (3.4-5.0); ALKALINE PHOSPHATASE 255 U/L (46-116); ALT (SGPT) 75 U/L (10-68); BILIRUBIN - TOTAL 1.45 mg/dL (0.2-1.3); CALC OSMOLALITY 274 mosm/kg (275-300); CALCIUM 9.7 mg/dL (8.5-10.1); CARBON DIOXIDE 27.3 mmol/L (21.0-32.0); CHLORIDE - SERUM 103 mmol/L (98-107); CREATININE - SERUM 0.7 mg/dL (0.6-1.3); GLUCOSE 114 mg/dL (74-106); POTASSIUM - SERUM 4.2 mmol/L (3.5-5.1); PROTEIN - SERUM 7.9 g/dL (6.4-8.2); SODIUM 137 mmol/L (136-145); UREA NITROGEN 12 mg/dL (7-18); eGFR NON AFRICAN AMERICAN > 90 mL/min (90-120)
== END | disposition home or self-care (01) ==
LOC: D.LAB 10:00
PROVIDERS: Radiology Diagnostic Radiology
DX: K74.60 Unspecified cirrhosis of liver (principal)

== ENCOUNTER → 2016-11-01 10:22 | Outpatient (CLI) | payer MEDICAID ==
[2016-10-24 15:37] VITALS: BMI 29.9
[~2016-11-01 10:22] MED LIST changes: -CIPRO500 MG PO; -FLAGYL500 MG PO; -XIFAXAN550 MG PO
== END | disposition home or self-care (01) ==
LOC: D.LAB 08:00
DX: K74.60 Unspecified cirrhosis of liver (principal)

== ENCOUNTER 2016-11-03 08:00 | Observation (INO) | payer MEDICAID ==
[~2016-11-03] VITALS: Ht 167.6 cm; Wt 82.8 kg
[2016-11-03 11:54] LABS: ALBUMIN 3.2 g/dL (3.4-5.0); ALKALINE PHOSPHATASE 250 U/L (46-116); ALT (SGPT) 58 U/L (10-68); CALC OSMOLALITY 271 mosm/kg (275-300); CALCIUM 9.6 mg/dL (8.5-10.1); CARBON DIOXIDE 22.5 mmol/L (21.0-32.0); CHLORIDE - SERUM 101 mmol/L (98-107); CREATININE - SERUM 0.8 mg/dL (0.6-1.3); GLUCOSE 158 mg/dL (74-106); POTASSIUM - SERUM 4.3 mmol/L (3.5-5.1); PROTEIN - SERUM 7.6 g/dL (6.4-8.2); SODIUM 134 mmol/L (136-145); UREA NITROGEN 16 mg/dL (7-18); eGFR NON AFRICAN AMERICAN > 90 mL/min (90-120)
--- NOTE | 2016-11-03 16:38 | NUR ---
DIRECT ADMIT WALKING BEHIND HOSPITAL STAFF TO ROOM, GAIT IS STEADY. WILL ADMIT.
[2016-11-03 16:47] VITALS: BP 140/71; Ht 167.6 cm; Wt 82.8 kg
--- NOTE | 2016-11-03 17:13 | NUR ---
PLACED A 22G IV IN PT'S RIGHT FOREARM. PT TOLERATED WELL.
--- NOTE | 2016-11-03 19:30 | NUR ---
RECEIVED REPORT FROM DAY NURSE, PT DENIES ANY NEEDS, CALL LIGHT IN REACH, BED IS LOW, SRX2, WILL CONTINUE TO MONITOR
[2016-11-03 20:00] VITALS: BP 122/56
[2016-11-04] VITALS: BP 126/66
--- NOTE | 2016-11-04 04:17 | NUR ---
STITCH SEPARATOR AT BEDSIDE TO OBTAIN VITALS, CALL LIGHT IN REACH. WILL CONTINUE WITH PLAN OF CARE.
[2016-11-04 04:53] LABS: EOSINOPHILS 1.7 % (0-7); HEMATOCRIT 35.3 % (42.0-54.0); HEMOGLOBIN 11.6 g/dL (13.5-17.5); LYMPHOCYTES 30.6 % (15-50); MCH 27.8 pg (26.0-34.0); MCHC 32.9 g/dL (31.0-37.0); MCV 84.7 fL (80.0-100.0); MEAN PLATELET VOLUME 11.8 fL (7.4-10.4); MONOCYTES 9.6 % (2-11); NEUTROPHILS 57.1 % (40-80); PLATELET COUNT 105 10x3/uL (130-400); RBC 4.17 10x6/uL (4.20-6.10); RDW 17.9 % (11.5-14.5); WBC 4.2 10x3/uL (4.8-10.8)
[2016-11-04 04:57] LABS: INR 1.18 (0.85-1.17); PROTIME 14.9 SECONDS (11.6-15.0)
--- NOTE | 2016-11-04 05:04 | NUR ---
SLEEPING, CALL LIGHT IN REACH, BED IS LOW, WILL CONTINUE TO MONITOR
[2016-11-04 05:24] LABS: ALBUMIN 2.8 g/dL (3.4-5.0); ALKALINE PHOSPHATASE 229 U/L (46-116); ALT (SGPT) 53 U/L (10-68); BILIRUBIN - TOTAL 1.11 mg/dL (0.2-1.3); CALC OSMOLALITY 267 mosm/kg (275-300); CALCIUM 8.9 mg/dL (8.5-10.1); CARBON DIOXIDE 22.4 mmol/L (21.0-32.0); CHLORIDE - SERUM 101 mmol/L (98-107); CREATININE - SERUM 0.7 mg/dL (0.6-1.3); GLUCOSE 144 mg/dL (74-106); PROTEIN - SERUM 6.8 g/dL (6.4-8.2); SODIUM 133 mmol/L (136-145); eGFR NON AFRICAN AMERICAN > 90 mL/min (90-120)
[2016-11-04 05:25] LABS: UREA NITROGEN 10 mg/dL (7-18)
--- NOTE | 2016-11-04 07:20 | NUR ---
AM ROUNDING MADE WITH PATIENT SNORING WITH EYES CLOSED. RESP ARE EVEN AND NON LABORED. BED ALARM IS SET. RIGHT FA SEEN WITH 1/2 NS W 20KL INFUSING AT 120 CC/HR. ON ROOM AIR. WILL CONTINUE TO FOLLOW.
[2016-11-04 08:19] VITALS: BP 86/47
[2016-11-04] MEDS ORDERED: CIPRO500 MG PO (09:21)
[2016-11-04] MEDS ORDERED: FLAGYL500 MG PO (09:21)
[2016-11-04] MEDS ORDERED: XIFAXAN550 MG PO (09:21)
--- NOTE | 2016-11-04 12:13 | CN ---
PATIENT NAME:ANITA SIBLEY MEDICAL RECORD: [id number] : 69 LOCATION:[address] ADMIT DATE: ACCOUNT: [id number] CONSULTING PHYSICIAN: JESSY MENENDEZ MD REFERRING PHYSICIAN: MICHAEL AN MD DATE OF CONSULTATION: 11/03/2016 Gastroenterology Consultation REFERRING PHYSICIAN: Michael An MD. HISTORY OF PRESENT ILLNESS: The patient is a 51-year-old white male well known to me with history of alcoholic cirrhosis with subsequent problems with ascites and variceal bleeding, status post recent TIPS procedure a couple weeks ago, he is now admitted with some recent confusion, namely not remembering coming home from work last night and a somewhat elevated ammonia level of ____. He also had some chills. For complete consultation, see my note from 2 weeks ago, which was extensive regarding his past medical and past surgical history. ALLERGIES: No known drug allergies. HOME MEDICATIONS: Include lactulose 30 mL b.i.d., Protonix 40 mg daily and Coreg. FAMILY HISTORY: Negative for GI disease. SOCIAL HISTORY: The patient quit drinking several months ago. He is non tobacco user. REVIEW OF SYSTEMS: Noncontributory other than in the HPI. PHYSICAL EXAMINATION: GENERAL: Reveals an alert and oriented male in no acute distress. VITAL SIGNS: Stable. He is afebrile. CHEST: Clear. HEART: Regular rate and rhythm. ABDOMEN: Soft, nontender. EXTREMITIES: No edema. There are no signs of ascites. LABORATORY DATA: Reveals normal electrolytes, BUN 16, creatinine 0.8. Total bilirubin is 1.5, AST 70, ALT 58, alkaline phosphatase 250, ammonia level was 93, albumin is 3.2. Alcohol level 0. IMPRESSION: Hepatic encephalopathy, status post transjugular intrahepatic portosystemic shunt. RECOMMENDATION: 1. Hydrate. 2. Add Xifaxan 550 mg b.i.d. 3. Empiric Flagyl and Rocephin for now. I have counseled the patient in light of his recent chills. 4. Okay to continue lactulose. I titrated it to 2-3 soft stools per day. It would not titrate to ammonia level. CONSULT REPORT [id number] ANITA SIBLEY TRANSINT:[id number] Voice Confirmation ID: [id number] DOCUMENT ID: [id number] JESSY MENENDEZ MD at 1213 CC: MICHAEL AN MD [id number] DICTATION DATE: 11/03/16 1858 ZOOGLER: 11/03/162045 [id number] [place] [address]
[2016-11-04 12:44] VITALS: BP 100/79
--- NOTE | 2016-11-04 12:55 | NUR ---
SPOKE WITH DR CONNER AND WAS GIVEN THE FINALLY DISCHARGE ORDERS.
--- NOTE | 2016-11-04 14:11 | NUR ---
1330-VERBAL AND WRITTEN DISCHARGE INSTRUCTIONS GIVEN TO PATIENT. SALINE LOCK REMOVED WITH CATH TIP INTACT. DISCHARGED HOME VIA WHEELCHAIR AND TAXI.
== END 2016-11-04 14:15 | disposition home or self-care (01) ==
LOC: D.US 08:00 → D.M2 08:19 → D.US 09:00 → OBSVTIME 15:40 → D.M2 15:40 → D.US 16:28 → D.M2 11-04 14:15 → D.US 11-07 08:30
PROVIDERS: Family Medicine; Internal Medicine Gastroenterology; ADMIT Specialist
DX: K72.90 Hepatic failure, unspecified without coma (principal); K70.30 Alcoholic cirrhosis of liver without ascites; I10 Essential (primary) hypertension; I25.10 Atherosclerotic heart disease of native coronary artery without angina pectoris; Z95.5 Presence of coronary angioplasty implant and graft; F41.9 Anxiety disorder, unspecified

== ENCOUNTER 2016-12-22 15:21 | Emergency (ER) | payer MEDICAID ==
[2016-11-03 16:47] VITALS: BMI 29.2
[~2016-12-22 15:21] MED LIST changes: +CIPRO500 MG PO; +FLAGYL500 MG PO; +XIFAXAN550 MG PO
[2016-12-22 16:05] LABS: BASOPHILS 0.3 % (0-2); EOSINOPHILS 0.3 % (0-7); HEMATOCRIT 32.9 % (42.0-54.0); HEMOGLOBIN 10.8 g/dL (13.5-17.5); IMMATURE GRANULOCYTES 0.3 % (0-5); LYMPHOCYTES 41.7 % (15-50); MCH 25.9 pg (26.0-34.0); MCHC 32.8 g/dL (31.0-37.0); MCV 78.9 fL (80.0-100.0); MEAN PLATELET VOLUME 9.4 fL (7.4-10.4); MONOCYTES 2.9 % (2-11); NEUTROPHILS 54.5 % (40-80); RBC 4.17 10x6/uL (4.20-6.10); RDW 13.6 % (11.5-14.5); WBC 3.5 10x3/uL (4.8-10.8)
[2016-12-22 16:14] LABS: PLATELET COUNT 41 10x3/uL (130-400)
[2016-12-22 16:17] LABS: INR 1.15 (0.85-1.17); PROTIME 14.6 SECONDS (11.6-15.0)
[2016-12-22 16:18] LABS: APTT 37.2 SECONDS (22.8-39.4)
[2016-12-22 16:30] LABS: ALBUMIN 4.1 g/dL (3.4-5.0); ALKALINE PHOSPHATASE 283 U/L (46-116); ALT (SGPT) 54 U/L (10-68); BILIRUBIN - TOTAL 1.57 mg/dL (0.2-1.3); CALC OSMOLALITY 283 mosm/kg (275-300); CALCIUM 8.4 mg/dL (8.5-10.1); CARBON DIOXIDE 25.9 mmol/L (21.0-32.0); CHLORIDE - SERUM 102 mmol/L (98-107); CREATININE - SERUM 0.7 mg/dL (0.6-1.3); GLUCOSE 142 mg/dL (74-106); POTASSIUM - SERUM 3.7 mmol/L (3.5-5.1); PROTEIN - SERUM 8.2 g/dL (6.4-8.2); SODIUM 142 mmol/L (136-145); UREA NITROGEN 11 mg/dL (7-18); eGFR NON AFRICAN AMERICAN > 90 mL/min (90-120)
[2016-12-22 16:36] LABS: LIPASE 246 U/L (73-393)
[2016-12-22 16:39] LABS: PLATELET ESTIMATE DECREASED
== END 2016-12-22 18:39 | disposition home or self-care (01) ==
LOC: D.ER 15:21
PROVIDERS: Emergency Medicine
DX: F10.10 Alcohol abuse, uncomplicated (principal); K76.9 Liver disease, unspecified; I95.9 Hypotension, unspecified; E11.9 Type 2 diabetes mellitus without complications

== ENCOUNTER → 2016-12-23 13:42 | Emergency (ER) | payer MEDICAID ==
[2016-11-03 16:47] VITALS: BMI 29.2
[2016-12-23 16:05] LABS: ALKALINE PHOSPHATASE 272 U/L (46-116); ALT (SGPT) 58 U/L (10-68); AMYLASE - SERUM 98 U/L (25-115); BILIRUBIN - TOTAL 1.88 mg/dL (0.2-1.3); CALC OSMOLALITY 278 mosm/kg (275-300); CALCIUM 8.8 mg/dL (8.5-10.1); CARBON DIOXIDE 26.1 mmol/L (21.0-32.0); CHLORIDE - SERUM 100 mmol/L (98-107); CREATININE - SERUM 0.7 mg/dL (0.6-1.3); GLUCOSE 124 mg/dL (74-106); LIPASE 191 U/L (73-393); POTASSIUM - SERUM 3.5 mmol/L (3.5-5.1); PROTEIN - SERUM 8.1 g/dL (6.4-8.2); SODIUM 140 mmol/L (136-145); UREA NITROGEN 11 mg/dL (7-18); eGFR NON AFRICAN AMERICAN > 90 mL/min (90-120)
[2016-12-23 16:07] LABS: BASOPHILS 0.3 % (0-2); EOSINOPHILS 0 % (0-7); HEMATOCRIT 30.3 % (42.0-54.0); IMMATURE GRANULOCYTES 0.3 % (0-5); LYMPHOCYTES 32.5 % (15-50); MCH 25.9 pg (26.0-34.0); MCV 78.5 fL (80.0-100.0); MEAN PLATELET VOLUME 10.5 fL (7.4-10.4); MONOCYTES 4.3 % (2-11); NEUTROPHILS 62.6 % (40-80); RBC 3.86 10x6/uL (4.20-6.10); RDW 13.6 % (11.5-14.5); WBC 3.3 10x3/uL (4.8-10.8)
[2016-12-23 16:20] LABS: PLATELET COUNT 37 10x3/uL (130-400)
== END | disposition home or self-care (01) ==
LOC: D.ER 13:42
PROVIDERS: Nurse Practitioner Acute Care
DX: F10.10 Alcohol abuse, uncomplicated (principal); K21.9 Gastro-esophageal reflux disease without esophagitis; I95.9 Hypotension, unspecified; E11.9 Type 2 diabetes mellitus without complications

== ENCOUNTER → 2017-04-25 12:10 | Outpatient (CLI) | payer MEDICAID ==
[2016-11-03 16:47] VITALS: BMI 29.2
[~2017-04-25 12:10] MED LIST changes: +FERROUS SULFAT325 MG PO
== END | disposition home or self-care (01) ==
LOC: D.LAB 11:45 → D.US 16:00
DX: K74.60 Unspecified cirrhosis of liver (principal)

== ENCOUNTER 2017-05-01 11:24 | Outpatient (CLI) | payer MEDICAID ==
--- NOTE | ~2017-05-01 | HEMODYNAMI ---
PATIENT:ANITA SIBLEY MEDICAL RECORD: [id number] : 69 LOCATION:D.OPS ADMISSION DATE: 05/01/17 Generatedon:05/01/201717:32 Patient name: ANITA SIBLEY Patient #: [id number] SSN: D OB: 1965 Date of study: 05/01/2017 Page: Of Hemodynamic Procedure Report Patient Data Patient Demographics Procedure consent was obtained First Name: ANITA Gender: Male Last Name: TOÑITO : 1965 Patient #: [id number] Age: 52 year(s) Race: Other Additional ID: [id number] Contact details [address]: [address] [address] State: [place] City: [place] Zip code: [address] Admission Admission Data Admission Date: 05/01/2017 Admission Time: 11:24 Procedure Procedure Types Cath Procedure Peripheral Cath Diagnostic Procedure Liver TIPSS Revision Procedure Description Procedure Date Procedure Date: 05/01/2017 Procedure Start Time: 15:53 Procedure Staff Name Function Sridhar Byrne MD Performing Physician Zahra Springer RN Nurse Melina Tran RN Nurse Lisseth Brown RT Scrub Stefan Blank RT Monitor Procedure Data Cath Procedure Fluoroscopy Diagnostic fluoroscopy Total fluoroscopy Time: time: 19.1 min 19.1 min Diagnostic fluoroscopy Total fluoroscopy dose: 895 dose: 895 mGy mGy Contrast Material Contrast Material Type Amount (ml) Isovue 300 85 Diagnostic catheters Device Type Used For End Catheter Placement [facility] Pigtail VESSEL SIZING 5Fr 65CM catheter Procedure Medications Medication Administration Route Dosage Ancef (1Gm/50ml NS) I.V.P.B Hemodynamics Rest Heart Rate: 56 (bpm) Pressure Samples Time Site Value (mmHg) Purpose Heart Use Rate(bpm) 16:41 Portal (35) Snapshot 117 16:41 Portal (35) Snapshot 106 17:03 Portal (26) Snapshot 106 17:05 RA 7/11(5) Snapshot 107 Snapshots Pre Cath Intra NCS Post Cath Vital Signs Time Heart Resp SPO2 NIBP (mmHg) Rhythm Pain Sedation Rate (ipm) (%) Status Level (bpm) 15:09:07 59 23 138/72(114) NSR 0 (11) 10(A) , No pain 15:10:54 60 22 129/66(103) NSR 0 (11) 10(A) , No pain 15:15:08 57 15 137/71(112) NSR 0 (11) 10(A) , No pain 15:20:05 58 23 129/68(102) NSR 0 (11) 10(A) , No pain 15:24:19 58 22 127/68(100) NSR 0 (11) 10(A) , No pain 15:28:33 57 21 131/69(101) NSR 0 (11) 10(A) , No pain 15:32:49 60 22 124/64(97) NSR 0 (11) 10(A) , No pain 15:36:59 68 13 131/73(106) NSR 0 (11) 10(A) , No pain 15:41:13 62 25 132/73(101) NSR 0 (11) 10(A) , No pain 15:45:27 66 13 133/71(105) NSR 0 (11) 10(A) , No pain 15:49:42 65 23 124/70(103) NSR 0 (11) 10(A) , No pain 15:53:57 70 21 121/64(92) NSR 0 (11) 10(A) , No pain 15:58:02 86 16 92 113/69(79) NSR 0 (11) 10(A) , No pain 16:02:10 86 22 98 111/67(86) NSR 0 (11) 10(A) , No pain 16:06:16 100 16 95 116/69(88) NSR 0 (11) 10(A) , No pain 16:10:26 101 16 95 111/67(85) NSR 0 (11) 10(A) , No pain 16:14:36 103 17 96 109/62(83) NSR 0 (11) 10(A) , No pain 16:18:39 102 16 96 111/69(89) NSR 0 (11) 10(A) , No pain 16:22:47 107 15 95 109/68(93) NSR 0 (11) 10(A) , No pain 16:26:55 111 16 94 111/63(80) NSR 0 (11) 10(A) , No pain 16:31:01 114 18 93 110/67(88) NSR 0 (11) 10(A) , No pain 16:35:07 115 22 94 115/63(82) NSR 0 (11) 10(A) , No pain 16:39:58 117 23 93 102/61(80) NSR 0 (11) 10(A) , No pain 16:44:04 112 29 94 103/56(80) NSR 0 (11) 10(A) , No pain 16:48:09 112 23 96 98/56(73) NSR 0 (11) 10(A) , No pain 16:52:13 109 21 96 104/55(82) NSR 0 (11) 10(A) , No pain 16:56:19 107 26 96 105/56(79) NSR 0 (11) 10(A) , No pain 17:00:26 104 25 97 98/57(80) NSR 0 (11) 10(A) , No pain 17:04:30 105 20 97 111/64(79) NSR 0 (11) 10(A) , No pain 17:08:38 107 22 96 100/64(82) NSR 0 (11) 10(A) , No pain 17:12:44 104 28 96 106/59(74) NSR 0 (11) 10(A) , No pain 17:16:48 94 27 97 112/72(90) NSR 0 (11) 10(A) , No pain 17:20:53 91 33 97 100/66(80) NSR 0 (11) 10(A) , No pain 17:24:59 86 35 120/76(93) NSR 0 (11) 10(A) , No pain 17:29:07 81 32 136/79(108) NSR 0 (11) 10(A) , No pain Medications Time Medication Route Dose Verified Delivered Reason Notes Effectiven ess by by 15:57:39 Ancef I.V.P.B Sridhar Cooper (1Gm/50ml Caty Springer RN protocol NS) Procedure Log Time Note 14:59:00 Stefan Shuffield RT (R) (CV) sent for patient. Start room use. 14:59:08 Time tracking: Regular hours 14:59:13 Plan of Care:Hemodynamics will remain stable., Cardiac rhythm will remain stable., Comfort level will be maintained., Respiratory function will remain adequate., Patient/ family verbilizes understanding of procedure., Procedure tolerated without complication., Recovers from procedure without complications.. 14:59:24 Patient received from Outpatients to IR Alert and oriented. Tansferred to table in Supine position. 14:59:25 Correct patient and procedure confirmed by team. 14:59:26 Signed procedure consent form obtained from patient. 14:59:28 ECG and BP/O2 sat monitors applied to patient. 14:59:33 Full Disclosure recording started 14:59:34 - 14:59:38 H&P Date Dictated: 05/01/2017 Within 30 days and on chart.. 14:59:38 Pre-procedure instructions explained to patient. 14:59:39 Pre-op teaching completed and patient verbalized understanding. 15:04:58 Use device set IR Diagnostic 15:04:59 Sterile Angiographic Pack opened to sterile field. 15:05:00 Bag Decanter opened to sterile field. 15:05:01 Acist Manifold opened to sterile field. 15:05:01 Acist Hand Control opened to sterile field. 15:05:02 Acist Syringe opened to sterile field. 15:08:01 Baseline sample Acquired. 15:08:01 Vital chart was started 15:38:44 LAITH BAZAN FROM ANESTHESIA HERE FOR TIVA 15:39:15 SEE ANESTHESIA NOTE FOR PRE PROCEDURE TIVA 15:52:05 Right neck area was prepped with chlora-prep and draped in sterile fashion 15:52:06 Alarms reviewed by R. N. 15:52:07 Sharps counted by scrub and verified by R.N. 15:52:23 Baseline sample Acquired. 15:52:28 Physician arrived 15::29 --------ALL STOP TIME OUT------ 15:52:29 Final Timeout: patient, procedure, and site verified with staff and physician. All members of the team are in agreement. 15:52:34 Right neck site verified by team. 15:52:46 Physical assessment completed. ASA score P 3 - A patient with severe systemic disease as per Sridhar Byrne MD. 15:52:51 Sedation plan: TIVA Propofol 15:52:55 Procedure started. 15:53:11 Local anesthetic to right IJ vein with Lidocaine 1% by Sridhar Byrne MD.INITIAL ACCESS ONLY 15:53:15 TUBING, CONTRAST INJCTN HI PRES opened to sterile field. 15:53:15 TUBING, CONTRAST INJCTN HI PRES opened to sterile field. 15:53:15 PERCUTANEOUS ENTRY 19GA needle opened to sterile field. 15:53:16 ApplyKit DOC .035 guide wire opened to sterile field. 15:53:16 ApplyKit DOC .035 guide wire opened to sterile field. 15:53:17 PolyServe ANGLE 260cm glide wire opened to sterile field. 15:53:17 ApplyKit LATIF 180 guide wire opened to sterile field. 15:53:20 A [employer] F Pigtail VESSEL SIZING 5Fr 65CM catheter was advanced over the wire and used for . 15:53:21 Terumo 5FR Assistant Quality Manager H1 100CM glide catheter opened to sterile field. 15:57:39 Ancef (1Gm/50ml NS) I.V.P.B was administered by Zahra Springer RN; Per protocol; 16:10:[address] .035 145 glide wire opened to sterile field. 16:12:34 Cook HELENA 1 6FR. Guide sheath opened to sterile field. 16:14:55 Cook LATIF 260 guide wire opened to sterile field. 16:33:04 [place] Sci AMPLATZ Super stiff 260cm guide wire opened to sterile field . 16:41:24 Zero performed for pressure channel P1 16:44:54 BasixTOUCH Inflation Syringe opened to sterile field. 16:51:51 WALL STENT 12X60 stent was deployed across Undefined1 . 16:53:57 Inflation number: 1 A Cordis Powerflex Pro 12.0 X 40 X 80cm balloon was prepped and advanced across the Undefined1, then inflated 17:02:53 Zero performed for pressure channel P1 17:02:57 Zero performed for pressure channel P1 17:04:40 Zero performed for pressure channel P1 17:08:46 Procedure ended.(Physican Out) 17:10:33 SEE ANESTHESIA NOTE FOR POST PROCEDURE TIVA 17:11:49 Fluoroscopy time 19.10 minutes. 17:11:56 Fluoroscopy dose: 895 mGy 17:11:56 Flurop Dose total: 895 17:12:01 Contrast amount:Isovue 300 85ml. 17:12:03 Sharps counted by scrub and verified by R.N. 17:12:10 Insertion/operative site no bleeding no hematoma. 17:12:17 Post-op/insertion site Right Jugular vein dressed using a 4 x 4 and Tegaderm. 17:12:33 Post right IJ vein:stable 17:12:39 Post-procedure physical assessment completed. ASA score P 3 - A patient with severe systemic disease as per Sridhar Byrne MD. 17:12:41 Post procedure instruction explained to patient.Patient verbalizes understanding. 17:12:42 Procedure and supply charges have been captured, reviewed, submitted an d are correct. 17:31:04 Report given to Med/Surg. 17:31:08 Patient transfered to Med/Surg with Bed. 17:32:20 Vital chart was stopped Intervention Summary Intervention Notes Time ActionType Lesion and Equipment Action# Pressure Duration Attributes Used 16:51:51 Deploy self Undefined1 WALL 1 expanding STENT stent 12X60 stent 16:53:57 Inflate Undefined1 Cordis 1 0 00:00 balloon Powerflex Pro 12.0 X 40 X 80cm balloon Device Usage Item Name Manufacture Quantity Catalog Hospital Part Current Minimal Lot# / Number Charge Number Stock Stock Serial# Code Sterile Cardinal 1 [id number] 809308 5 Angiographic Health Pack Bag Decanter Microtek 1 094090 47769 104912 5 Medical Inc. Acist Acist 1 76001 832189 824297 989627 5 Manifold Medical Systems Inc Acist Hand Acist 1 42810 110118 383320 735601 5 Control Medical Systems Inc Acist Acist 1 97801 811736 934544 594773 20 Syringe Medical Systems Inc TUBING, Merit 2 [id number] 379805 745404 730494 5 [id number] CONTRAST Medical INJCTN HI PRES PERCUTANEOUS Cook Medical 1 [id number] 913814 367519 5 [id number] ENTRY 19GA needle Cook DOC Cook Medical 2 P45733 398356 696349 5 3934356 .035 guide 1055262 wire Terumo ANGLE Terumo 1 BE7181 246684 935144 096450 5 260cm glide wire [facility] 1 I42401 060733 071063 5 [id number] 180 guide wire Merit F Merit 1 [id number] 970525 730841 5 Pigtail Medical VESSEL SIZING 5Fr 65CM catheter Terumo 5FR [place] 1 CG513 581508 565382 5 Assistant Quality Manager Scientific H1 100CM glide catheter [facility] 1 X24657 734518 574642 5 8266015 [address]ADRUNNER .035 145 glide wire Cook HELENA 1 [facility] 1 N45833 869103 341384 5 [id number] 6FR. Guide sheath [facility] 1 M68415 959150 130809 5 [id number] 260 guide wire [place] Sci [place] 1 [id number] 179064 02533 929989 5 [id number] AMPLATZ Scientific Super stiff 260cm guide wire BasixTOUCH Merit 1 JO3979 054591 734261 896632 5 Inflation Medical Syringe WALL STENT [place] 1 [id number] 508799 619479 893939 5 [id number] 12X60 stent Scientific Cordis Cardinal 1 [id number] 477843 874187 060268 5 Powerflex Health Pro 12.0 X 40 X 80cm balloon Signature Audit [place] Stage Time Signature Unsigned Intra-Procedure 05/01/2017 Stefan 5:32:09 PM Shuffield RT (R) (CV) Signatures Monitor : Stefan Signature : Abhay RT Date : Time : [id number] [place] [address]
[~2017-05-01 11:24] MED LIST changes: -FERROUS SULFAT325 MG PO
[2017-05-01] MEDS ORDERED: FERROUS SULFAT325 MG PO (12:22)
[2017-05-01 12:23] VITALS: BP 137/77; BMI 32.0
[2017-05-01 12:45] LABS: BASOPHILS 0.5 % (0-2); EOSINOPHILS 1.7 % (0-7); HEMATOCRIT 37.3 % (42.0-54.0); HEMOGLOBIN 12.1 g/dL (13.5-17.5); LYMPHOCYTES 26.7 % (15-50); MCH 26.6 pg (26.0-34.0); MCHC 32.4 g/dL (31.0-37.0); MEAN PLATELET VOLUME 10.4 fL (7.4-10.4); MONOCYTES 10.7 % (2-11); NEUTROPHILS 60.4 % (40-80); RBC 4.55 10x6/uL (4.20-6.10); RDW 15.6 % (11.5-14.5)
[2017-05-01 12:46] LABS: PLATELET COUNT 88 10x3/uL (130-400)
[2017-05-01 12:53] LABS: APTT 37.9 SECONDS (22.8-39.4); INR 1.23 (0.85-1.17); PROTIME 15.4 SECONDS (11.6-15.0)
[2017-05-01 13:00] LABS: PLATELET ESTIMATE DECREASED
[2017-05-01 13:03] LABS: CALC OSMOLALITY 279 mosm/kg (275-300); CALCIUM 8.6 mg/dL (8.5-10.1); CHLORIDE - SERUM 104 mmol/L (98-107); CREATININE - SERUM 0.6 mg/dL (0.6-1.3); GLUCOSE 120 mg/dL (74-106); POTASSIUM - SERUM 3.8 mmol/L (3.5-5.1); SODIUM 139 mmol/L (136-145); UREA NITROGEN 14 mg/dL (7-18); eGFR NON AFRICAN AMERICAN > 90 mL/min (90-120)
--- NOTE | 2017-05-01 17:50 | NUR ---
PATIENT ADMITTED FROM SPECIAL BY BED. DIAG: TIPS REVSIION. PATIENT IS ALERT/ORIENT X4. V/S TAKEN ORDERED. USING UNITAL AT BEDSIDE. HAD 450CC CLEAR YELLOW URINE OUTPUT.BED REST FOR THE NEX FOUR HOURS. ELEVATE HOB TO 30%. ICE PACK TO PUNCTURE SITE
[2017-05-01 18:26] VITALS: BP 104/54
[2017-05-01 18:31] VITALS: BP 104/54
[2017-05-01 18:48] VITALS: BP 113/61
--- NOTE | 2017-05-01 19:01 | NUR ---
DR. ROCHA PAGED IN REGARDS TO CR AMONIA LEVEL
--- NOTE | 2017-05-01 19:15 | NUR ---
Received patient resting in bed with eyes closed, assessment completed per flowsheet. Patient is AO x4, calm and cooperative. Eyes PERRLA @ 4mm with brisk response, sclera is white. S1/S2 noted, rhythmic and regular. Breathing is even and unlabored on 2L via NC with O2 sat 94%, lung sounds clear upper and mid with diminished lower. Abdomen is flat and soft with bowel sounds active x4, non-tender. Patient ambulates self to bathroom without assistance. Full ROM all extremities with all pulses palpable, cap refill < 3 sec with skin warm/dry to touch. R neck incision dressing CDI, patent and saline locked. Patient denies pain or other needs at this time, all VSS and will continue to monitor.
[2017-05-01 19:50] VITALS: BP 108/60
[2017-05-01 20:50] VITALS: BP 100/56
--- NOTE | 2017-05-01 21:00 | NUR ---
All HS meds given without difficulty, patient resting in bed with eyes open watching TV. No visitors at this time, patient denies pain or other needs. All VSS and will continue to monitor.
--- NOTE | 2017-05-01 23:00 | NUR ---
Reassessment completed per flowsheet, patient resting in bed with eyes closed. R neck incision dressing CDI, no bleeding/drainage noted. S1/S2 noted NDR on telemetry with HR 96, rhtynic and regular. Breathing is even and unlabored on room air with O2 sat 95%. All pulses palpable with cap refill < 3 sec, skin warm/dry to touch. Patient denies pain or other needs at this time, all VSS and will continue to monitor.
--- NOTE | 2017-05-02 01:00 | NUR ---
Patient resting in bed with eyes closed, breathing is even and unlabored. No further needs at this time, all VSS and will continue to monitor.
--- NOTE | 2017-05-02 03:10 | NUR ---
Reassessment completed per flowsheet, patient resting in bed with eyes closed. R neck incision dressing CDI, no bleeding/drainage noted. S1/S2 noted, rhythmic and regular. Breathing is even and unlabored on room air with O2 sat 95%. Full ROM all extremities with all pulses palpable, cap refill < 3 sec. Patient denies pain or other needs at this time, all VSS and will continue to monitor.
[2017-05-02 04:00] VITALS: BP 119/62
--- NOTE | 2017-05-02 05:00 | NUR ---
AM labs collected without difficulty, no further needs at this time. All VSS and will continue to monitor.
--- NOTE | 2017-05-02 07:30 | NUR ---
PT WAS RECEIVED THIS AM SITTING UP IN BED. HE ASKED ABOUT BREAKFAST. I DISCUSSED IT WITH RADIOLOGY NURSE AND SHE STATED THAT HE COULD HAVE A REGULAR DIET ORDERED. GEN- AWAKE AND ALERT. LUNGS CLEAR. HEART- RRR. DRESSING NOTED R SIDE OF NECK WHICH IS CLEAN , DRY AND INTACT. ABD- SOFT, NT. EXT- WITHOUT EDEMA. GOOD SENSATION LE. BED IS LOW, SIDE RAILS UP X 2 AND CALL LIGHT IN REACH.
[2017-05-02 08:47] LABS: BASOPHILS 0.2 % (0-2); EOSINOPHILS 2.7 % (0-7); HEMATOCRIT 38.6 % (42.0-54.0); HEMOGLOBIN 12.6 g/dL (13.5-17.5); MCH 26.7 pg (26.0-34.0); MCHC 32.6 g/dL (31.0-37.0); MCV 81.8 fL (80.0-100.0); MEAN PLATELET VOLUME 11.6 fL (7.4-10.4); MONOCYTES 8.7 % (2-11); NEUTROPHILS 68.4 % (40-80); PLATELET COUNT 96 10x3/uL (130-400); RBC 4.72 10x6/uL (4.20-6.10); RDW 15.3 % (11.5-14.5); WBC 4.8 10x3/uL (4.8-10.8)
[2017-05-02 08:52] VITALS: BP 118/66
[2017-05-02 09:02] LABS: ALBUMIN 3.2 g/dL (3.4-5.0); ALKALINE PHOSPHATASE 244 U/L (46-116); ALT (SGPT) 33 U/L (10-68); CALC OSMOLALITY 277 mosm/kg (275-300); CARBON DIOXIDE 25.7 mmol/L (21.0-32.0); CHLORIDE - SERUM 103 mmol/L (98-107); CREATININE - SERUM 0.7 mg/dL (0.6-1.3); GLUCOSE 126 mg/dL (74-106); PROTEIN - SERUM 7.1 g/dL (6.4-8.2); SODIUM 138 mmol/L (136-145); UREA NITROGEN 13 mg/dL (7-18); eGFR NON AFRICAN AMERICAN > 90 mL/min (90-120)
--- NOTE | 2017-05-02 09:41 | NUR ---
LAB CALLED ME WITH A CRITICAL LAB. AMMONIA IS 57. DR ROCHA CONTACTED. MESSAGE GIVEN TO AMADEO, HIS NURSE. SHE STATES THAT SHE WILL CALL ME BACK IF NEEDED.
--- NOTE | 2017-05-02 10:51 | NUR ---
RECEIVED ORDER AND ACKNOWLEDGED FOR PT TO BE DISCHARGED HOME. DC NURSE WILL DO PAPERWORK.
[2017-05-02] MEDS ORDERED: CHRONULAC30 ML PO (11:08)
--- NOTE | 2017-05-02 11:25 | NUR ---
PTS IV WAS D'CD. SITE WITH NO REDNESS, SWELLING OR TENDERNESS. BANDAID APPLIED WITH PRESSURE.
--- NOTE | 2017-05-02 11:39 | NUR ---
PT HAS BEEN DISCHARGED HOME. INSTRUCTIONS, PRESCRIPTIONS AND FU APPTS DISCUSSED WITH PT. HE UNDERSTANDS. NO QUESTIONS.
[2017-05-02 12:06] VITALS: BP 118/79
[2017-05-05 18:09] LABS: AMINO ACID - A-AMINO-N-BUTY 45.3 umol/L (5.4-34.5); AMINO ACID - A-AMINOADIPIC 0.7 umol/L (0.0-2.2); AMINO ACID - ALANINE 345.8 umol/L (124.8-564.2); AMINO ACID - ALLOISOLEUCINE 2.4 umol/L (0.4-3.2); AMINO ACID - ARGININE 74.9 umol/L (32.0-150.0); AMINO ACID - ARGININOSUCCINATE 0.1 umol/L (0.0-3.0); AMINO ACID - ASPARAGINE 72.7 umol/L (29.5-84.5); AMINO ACID - ASPARTATE 2.9 umol/L (0.9-7.4); AMINO ACID - B-ALANINE 2.3 umol/L (1.1-9.0); AMINO ACID - B-AMINOISOBU 1.8 umol/L (0.3-4.3); AMINO ACID - CITRULLINE 38.8 umol/L (13.7-63.2); AMINO ACID - CYSTATHIONINE 0.2 umol/L (0.0-0.7); AMINO ACID - CYSTINE 35.7 umol/L (13.5-60.2); AMINO ACID - G-AMINOBUTYRIC <0.4 umol/L (0.0-0.3); AMINO ACID - GLUTAMATE 160.6 umol/L (18.1-155.9); AMINO ACID - GLUTAMINE 410.6 umol/L (332.0-754.0); AMINO ACID - GLYCINE 225.1 umol/L (132.0-467.0); AMINO ACID - HISTIDINE 101.6 umol/L (47.2-98.5); AMINO ACID - HOMOCITRULLINE <0.5 umol/L (0.0-1.7); AMINO ACID - HOMOCYSTINE <0.1 umol/L (0.0-0.1); AMINO ACID - HYDROXYLYSINE 0.3 umol/L (0.1-0.8); AMINO ACID - HYDROXYPROLINE 16.7 umol/L (4.7-35.2); AMINO ACID - ISOLEUCINE 52.9 umol/L (27.7-112.8); AMINO ACID - LEUCINE 126.3 umol/L (54.9-205.0); AMINO ACID - LYSINE 202.8 umol/L (94.0-278.0); AMINO ACID - METHIONINE 38.3 umol/L (12.7-41.1); AMINO ACID - ORNITHINE 59.7 umol/L (30.5-131.4); AMINO ACID - PHENYLALANINE 99.1 umol/L (33.6-101.9); AMINO ACID - PROLINE 185.6 umol/L (84.8-352.5); AMINO ACID - SARCOSINE 3.5 umol/L (0.0-4.0); AMINO ACID - TAURINE 89.2 umol/L (29.2-132.3); AMINO ACID - THREONINE 130.3 umol/L (67.8-211.6); AMINO ACID - TRYPTOPHAN 112.9 umol/L (23.5-93.0); AMINO ACID - TYROSINE 102.7 umol/L (31.1-118.1); AMINO ACID - VALINE 205.9 umol/L (102.6-345.4)
== END 2017-05-02 16:01 | disposition home or self-care (01) ==
LOC: D.OPS 11:24 → D.SP 14:00 → D.MS 17:48 → D.OPS 05-02 16:01
PROVIDERS: Family Medicine; Specialist
DX: T82.858A Stenosis of other vascular prosthetic devices, implants and grafts, initial encounter (principal); Z01.812 Encounter for preprocedural laboratory examination

== ENCOUNTER → 2017-05-04 09:21 | Outpatient (CLI) | payer MEDICAID ==
[~2017-05-04 09:21] MED LIST changes: +FERROUS SULFAT325 MG PO
[2017-05-04 10:05] LABS: ALBUMIN 3.4 g/dL (3.4-5.0); BILIRUBIN - DIRECT 0.54 mg/dL (0.00-0.30); BILIRUBIN - INDIRECT 0.86 mg/dL (0.00-1.00); BILIRUBIN - TOTAL 1.4 mg/dL (0.2-1.3); PROTEIN - SERUM 7.7 g/dL (6.4-8.2)
== END ==
LOC: D.LAB 08:15
PROVIDERS: Specialist
DX: K74.60 Unspecified cirrhosis of liver (principal)

== ENCOUNTER → 2017-05-09 10:04 | Outpatient (CLI) | payer MEDICAID | END | disposition home or self-care (01) | LOC: D.LAB 10:04 | DX: K76.6 Portal hypertension (principal); K74.60 Unspecified cirrhosis of liver ==

== ENCOUNTER → 2017-06-07 07:27 | Outpatient (CLI) | payer MEDICAID | END | disposition home or self-care (01) | LOC: D.US 07:27 | DX: K74.60 Unspecified cirrhosis of liver (principal) ==

== ENCOUNTER 2017-09-26 05:09 | Outpatient (CLI) | payer MEDICAID ==
[2017-09-26 05:32] VITALS: BP 158/81; BMI 36.0
[2017-09-26 06:17] LABS: CALC OSMOLALITY 284 mosm/kg (275-300); CALCIUM 8.5 mg/dL (8.5-10.1); CHLORIDE - SERUM 101 mmol/L (98-107); CREATININE - SERUM 0.7 mg/dL (0.6-1.3); POTASSIUM - SERUM 3.7 mmol/L (3.5-5.1); SODIUM 138 mmol/L (136-145); UREA NITROGEN 12 mg/dL (7-18); eGFR NON AFRICAN AMERICAN > 90 mL/min (90-120)
[2017-09-26 06:18] LABS: GLUCOSE 263 mg/dL (74-106)
[2017-09-26 06:27] LABS: APTT 31.5 SECONDS (22.8-39.4); INR 1.22 (0.85-1.17)
[2017-09-26 07:33] LABS: BASOPHILS 0.5 % (0-2); EOSINOPHILS 0.9 % (0-7); HEMOGLOBIN 14.2 g/dL (13.5-17.5); IMMATURE GRANULOCYTES 0.2 % (0-5); LYMPHOCYTES 25.8 % (15-50); MCH 27.5 pg (26.0-34.0); MCHC 32.3 g/dL (31.0-37.0); MCV 85.1 fL (80.0-100.0); MEAN PLATELET VOLUME 11.2 fL (7.4-10.4); MONOCYTES 11.1 % (2-11); NEUTROPHILS 61.5 % (40-80); PLATELET COUNT 84 10x3/uL (130-400); RBC 5.17 10x6/uL (4.20-6.10); RDW 15.9 % (11.5-14.5); WBC 4.4 10x3/uL (4.8-10.8)
== END 2017-09-26 08:50 | disposition home or self-care (01) ==
LOC: D.OPS 05:09 → D.CT 08:00 → D.OPS 08:00
PROVIDERS: Specialist
DX: R18.8 Other ascites (principal); Z01.810 Encounter for preprocedural cardiovascular examination; Z01.811 Encounter for preprocedural respiratory examination; Z01.812 Encounter for preprocedural laboratory examination; Z53.9 Procedure and treatment not carried out, unspecified reason

== ENCOUNTER 2017-10-17 06:05 | Day surgery (SDC) | payer MEDICAID ==
[~2017-10-17] VITALS: Ht 165.1 cm; Wt 94.3 kg
--- NOTE | ~2017-10-17 | OP ---
PATIENT NAME: ANITA SIBLEY MEDICAL RECORD: [id number] :69 LOCATION:D.OPS ADMISSION DATE: SURGEON: MANUELA LAY MD DATE OF OPERATION: 10/17/2017 PREOPERATIVE DIAGNOSES: 1. Umbilical hernia. 2. Liver cirrhosis. 3. Diabetes mellitus. 4. Hypertension. 5. Hypercholesterolemia. POSTOPERATIVE DIAGNOSES: 1. Umbilical hernia. 2. Liver cirrhosis. 3. Diabetes mellitus. 4. Hypertension. 5. Hypercholesterolemia. PROCEDURE: Umbilical hernia repair with 4.3 cm Proceed mesh. SURGEON: Manuela Lay MD REPORT OF PROCEDURE: The patient's abdomen was prepped and draped in sterile fashion. A semicircular incision was made on the inferior aspect of the umbilicus. Electrocautery was used to dissect through the subcutaneous tissue and through the superior aspect of the hernia sac. The hernia sac was cleared off of the undersurface of the umbilicus. We then cleared off the edges of the fascia in all directions and noticed it was about 2.5 cm in greatest diameter. The top of the bottom of the fascia was cleared off in all directions. A 4.3 cm Proceed mesh was then inserted in an underlay fashion and sutured down with interrupted 0 Prolenes times 4. The wound was then irrigated out with normal saline. We then closed the fascia over top of the mesh using running 0 Vicryl in a transverse fashion, the umbilicus was tacked down to the fascia using an interrupted 3-0 Vicryl. The subcutaneous tissues were infused with a total of 10 mL of 0.25% Marcaine plain and then reapproximated with interrupted 3-0 Vicryls and the skin was closed with running subcutaneous 5-0 Monocryl and dressed appropriately. COMPLICATIONS: None. CONDITION: Stable. ANESTHESIA: General endotracheal and local. BLOOD LOSS: 50 mL. TRANSINT:[id number] Voice Confirmation ID: [id number] DOCUMENT ID: [id number] OPERATIVE REPORT [id number] ANITA SIBLEY CHRISTIAN MD at 1413 CC: WILLIAN ROCHA [phone] DICTATION DATE: 10/17/17 0954 SUPPLY CHAIN MANAGER: 10/17/17 1124 [facility] 10/17/17 [place] [address]
[2017-10-17 06:30] LABS: BASOPHILS 0.5 % (0-2); EOSINOPHILS 4.2 % (0-7); HEMATOCRIT 41.4 % (42.0-54.0); HEMOGLOBIN 13.5 g/dL (13.5-17.5); LYMPHOCYTES 26.7 % (15-50); MCH 27.3 pg (26.0-34.0); MCHC 32.6 g/dL (31.0-37.0); MCV 83.6 fL (80.0-100.0); MEAN PLATELET VOLUME 10.3 fL (7.4-10.4); MONOCYTES 9.3 % (2-11); NEUTROPHILS 59.3 % (40-80); PLATELET COUNT 93 10x3/uL (130-400); RBC 4.95 10x6/uL (4.20-6.10); RDW 14.6 % (11.5-14.5); WBC 4.1 10x3/uL (4.8-10.8)
[2017-10-17 06:48] LABS: ALBUMIN 2.8 g/dL (3.4-5.0); ALKALINE PHOSPHATASE 317 U/L (46-116); ALT (SGPT) 35 U/L (10-68); BILIRUBIN - TOTAL 1.34 mg/dL (0.2-1.3); CALC OSMOLALITY 280 mosm/kg (275-300); CALCIUM 8.4 mg/dL (8.5-10.1); CARBON DIOXIDE 24.9 mmol/L (21.0-32.0); CHLORIDE - SERUM 104 mmol/L (98-107); CREATININE - SERUM 0.8 mg/dL (0.6-1.3); GLUCOSE 184 mg/dL (74-106); POTASSIUM - SERUM 4.1 mmol/L (3.5-5.1); PROTEIN - SERUM 7.4 g/dL (6.4-8.2); SODIUM 139 mmol/L (136-145); UREA NITROGEN 7 mg/dL (7-18); eGFR NON AFRICAN AMERICAN > 90 mL/min (90-120)
[2017-10-17 07:16] LABS: INR 1.24 (0.85-1.17); PROTIME 15.1 SECONDS (11.6-15.0)
[2017-10-17 07:17] LABS: APTT 35.4 SECONDS (22.8-39.4)
[2017-10-17 07:27] VITALS: BP 113/63; Ht 165.1 cm; Wt 94.3 kg
[2017-10-17] MEDS ORDERED: IBUDONE 10-2001 TAB PO (09:45)
== END 2017-10-17 13:30 | disposition home or self-care (01) ==
LOC: D.OPS 06:05
PROVIDERS: Anesthesiology; Surgery
DX: K42.9 Umbilical hernia without obstruction or gangrene (principal); K74.60 Unspecified cirrhosis of liver; E11.9 Type 2 diabetes mellitus without complications; I10 Essential (primary) hypertension; E78.00 Pure hypercholesterolemia, unspecified; K21.9 Gastro-esophageal reflux disease without esophagitis; Z01.812 Encounter for preprocedural laboratory examination

== ENCOUNTER 2017-10-18 22:35 | Emergency (ER) | payer MEDICAID ==
[2017-10-17 07:27] VITALS: BMI 34.6
[~2017-10-18 22:35] MED LIST changes: +IBUDONE 10-2001 TAB PO
[2017-10-18 23:24] LABS: BASOPHILS 0.2 % (0-2); EOSINOPHILS 0.5 % (0-7); HEMATOCRIT 42.3 % (42.0-54.0); HEMOGLOBIN 14.2 g/dL (13.5-17.5); IMMATURE GRANULOCYTES 0.3 % (0-5); LYMPHOCYTES 16.3 % (15-50); MCHC 33.6 g/dL (31.0-37.0); MCV 83.4 fL (80.0-100.0); MEAN PLATELET VOLUME 11.4 fL (7.4-10.4); MONOCYTES 7.4 % (2-11); NEUTROPHILS 75.3 % (40-80); PLATELET COUNT 105 10x3/uL (130-400); RBC 5.07 10x6/uL (4.20-6.10); RDW 14.7 % (11.5-14.5)
[2017-10-18 23:25] LABS: WBC 6.2 10x3/uL (4.8-10.8)
[2017-10-19 00:08] LABS: ALBUMIN 2.9 g/dL (3.4-5.0); ALKALINE PHOSPHATASE 292 U/L (46-116); ALT (SGPT) 36 U/L (10-68); AMYLASE - SERUM 79 U/L (25-115); BILIRUBIN - TOTAL 2.39 mg/dL (0.2-1.3); CALC OSMOLALITY 279 mosm/kg (275-300); CALCIUM 8.3 mg/dL (8.5-10.1); CARBON DIOXIDE 26.2 mmol/L (21.0-32.0); CHLORIDE - SERUM 101 mmol/L (98-107); CREATININE - SERUM 0.8 mg/dL (0.6-1.3); GLUCOSE 172 mg/dL (74-106); LIPASE 89 U/L (73-393); POTASSIUM - SERUM 3.5 mmol/L (3.5-5.1); PROTEIN - SERUM 7.6 g/dL (6.4-8.2); SODIUM 138 mmol/L (136-145); UREA NITROGEN 13 mg/dL (7-18); eGFR NON AFRICAN AMERICAN > 90 mL/min (90-120)
[2017-10-19 00:25] LABS: APPEARANCE CLOUDY (CLEAR); COLOR AMBER (YELLOW); NITRITE NEGATIVE (NEGATIVE); PH 5.5 (5.0-6.0); PROTEIN TRACE mg/dL (NEGATIVE)
[2017-10-19 00:26] LABS: BILIRUBIN 2+ (NEGATIVE); GLUCOSE NEGATIVE (NEGATIVE); KETONE SMALL mg/dL (NEGATIVE)
[2017-10-19 00:33] LABS: BACTERIA MODERATE /hpf (NONE SEEN); EPITHELIAL CELLS 0-5 /hpf (0-5); MUCUS >1+ /lpf (NONE SEEN); RED CELLS - URINE 0-5 /hpf (0-5); WHITE CELLS - URINE 0-5 /hpf (0-5)
== END 2017-10-19 02:25 | disposition home or self-care (01) ==
LOC: D.ER 22:35
PROVIDERS: Emergency Medicine; Physician Assistant Medical
DX: G89.18 Other acute postprocedural pain (principal); K21.9 Gastro-esophageal reflux disease without esophagitis; E11.9 Type 2 diabetes mellitus without complications

== ENCOUNTER → 2017-11-29 08:06 | Outpatient (CLI) | payer MEDICAID ==
[2017-10-17 07:27] VITALS: BMI 34.6
== END | disposition home or self-care (01) ==
LOC: D.US 08:06
DX: K74.60 Unspecified cirrhosis of liver (principal)

== ENCOUNTER 2018-04-20 05:03 | Outpatient (CLI) | payer BC ==
[~2018-04-20] VITALS: Ht 167.6 cm; Wt 100.0 kg
[2018-04-20 06:37] LABS: CALC OSMOLALITY 269 mosm/kg (275-300); CALCIUM 8.4 mg/dL (8.5-10.1); CARBON DIOXIDE 25.5 mmol/L (21.0-32.0); CHLORIDE - SERUM 99 mmol/L (98-107); CREATININE - SERUM 0.6 mg/dL (0.6-1.3); POTASSIUM - SERUM 3.8 mmol/L (3.5-5.1); SODIUM 132 mmol/L (136-145); UREA NITROGEN 7 mg/dL (7-18); eGFR NON AFRICAN AMERICAN > 90 mL/min (90-120)
[2018-04-20 06:40] LABS: GLUCOSE 220 mg/dL (74-106)
[2018-04-20 06:47] VITALS: BP 170/89; Ht 167.6 cm; Wt 100.0 kg
[2018-04-20 06:58] LABS: APTT 34.5 SECONDS (22.8-39.4); INR 1.25 (0.85-1.17); PROTIME 15.3 SECONDS (11.6-15.0)
[2018-04-20 07:25] LABS: BASOPHILS 0.4 % (0-2); EOSINOPHILS 0 % (0-7); HEMATOCRIT 39.2 % (42.0-54.0); HEMOGLOBIN 13.1 g/dL (13.5-17.5); IMMATURE GRANULOCYTES 0.2 % (0-5); LYMPHOCYTES 14.5 % (15-50); MCH 27.5 pg (26.0-34.0); MCHC 33.4 g/dL (31.0-37.0); MCV 82.4 fL (80.0-100.0); MEAN PLATELET VOLUME 10.9 fL (7.4-10.4); MONOCYTES 13.9 % (2-11); RBC 4.76 10x6/uL (4.20-6.10); RDW 16.9 % (11.5-14.5); WBC 4.5 10x3/uL (4.8-10.8)
[2018-04-20 07:28] LABS: PLATELET COUNT 71 10x3/uL (130-400)
[2018-04-20 08:21] LABS: PLATELET ESTIMATE DECREASED
[2018-04-20 09:10] LABS: ALBUMIN 2.9 g/dL (3.4-5.0); ALKALINE PHOSPHATASE 230 U/L (46-116); ALT (SGPT) 46 U/L (10-68); BILIRUBIN - TOTAL 1.36 mg/dL (0.2-1.3); PROTEIN - SERUM 7.2 g/dL (6.4-8.2)
== END 2018-04-20 09:35 | disposition home or self-care (01) ==
LOC: D.SP 05:03 → D.CT 08:00 → D.SP 09:35
PROVIDERS: Specialist
DX: R18.8 Other ascites (principal); Z01.812 Encounter for preprocedural laboratory examination

== ENCOUNTER → 2018-06-19 07:16 | Outpatient (CLI) | payer MEDICAID ==
[2018-04-20 06:47] VITALS: BMI 35.6
== END | disposition home or self-care (01) ==
LOC: D.US 07:16
DX: K74.60 Unspecified cirrhosis of liver (principal)

== ENCOUNTER 2018-08-02 09:24 | Outpatient (CLI) | payer MEDICAID ==
[~2018-08-02] VITALS: Ht 167.6 cm; Wt 109.1 kg
--- NOTE | ~2018-08-02 | HEMODYNAMI ---
PATIENT:ANITA SIBLEY MEDICAL RECORD: [id number] : 69 LOCATION:D[facility] [id number] ADMISSION DATE: 08/02/18 Generatedon:08/02/201814:18 Patient name: ANITA SIBLEY Patient #: [id number] SSN: D OB: 1965 Date of study: 08/02/2018 Page: Of Hemodynamic Procedure Report Patient Data Patient Demographics Procedure consent was obtained First Name: ANITA Gender: Male Last Name: TOÑITO : 1965 Patient #: [id number] Age: 53 year(s) Race: Other Additional ID: [id number] Contact details [address]: [address] [place] [address] State: [place] City: [place] Zip code: [address] Past Medical History Allergies: No known allergies Admission Admission Data Admission Date: 08/02/2018 Admission Time: 9:24 Height (in.): 66 BSA: 2.16 (m2) Height (cm.): 167.64 BMI: 38.74 (kg/m2) Weight (lbs.): 240 Weight (kg.): 108.86 Procedure Procedure Types Cath Procedure Peripheral Cath Diagnostic Procedure Meteorological Technician Peripheral Procedures Liver TIPSS Revision Procedure Description Procedure Date Procedure Date: 08/02/2018 Procedure Start Time: 12:47 Procedure Staff Name Function Clara Brooks RT Manufacturing Engineer Machining Stefan Blank RT Scrub Sridhar Byrne MD Performing Physician Robb [place] Additional personnel Zahra Springer RN Nurse Jodi Davalos RN Nurse Procedure Data Cath Procedure Fluoroscopy Diagnostic fluoroscopy Total fluoroscopy Time: time: 13.3 min 13.3 min Diagnostic fluoroscopy Total fluoroscopy dose: 931 dose: 931 mGy mGy Contrast Material Contrast Material Type Amount (ml) Isovue 300 105 Diagnostic catheters Device Type Used For End Catheter Placement Merit ULTRA BOLUS FLUSH 5Fr 90CM catheter ([id number]) Procedure Medications Medication Administration Route Dosage Oxygen etCO2 Nasal cannula 4 l/min Lidocaine 1% added to field 20 Heparin Flush Bag added to field 3 bags (1000units/500ml NS) Ancef (1Gm/50ml NS) I.V.P.B 1 g unlisted medication I.V. g unlisted medication 1 Hemodynamics Rest BSA: 2.16 (m2) O2 Consumption: Estimated: 263.36 (ml/min) O2 Consumption indexed : Estimated:121.93 (ml/min/m) Heart Rate: 77 (bpm) Pressure Samples Time Site Value (mmHg) Purpose Heart Use Rate(bpm) 13:13 Portal (38) Snapshot 71 13:26 Portal (30) Snapshot 70 13:28 RA 20/19(17) Snapshot 70 13:43 Portal (29) Snapshot 68 13:43 Portal (29) Snapshot 68 13:45 RA 14/17(14) Snapshot 68 13:45 RA 19/16(14) Snapshot 68 Snapshots Pre Cath Intra NCS Post Cath Medications Time Medication Route Dose Verified Delivered Reason Notes Effe ctiveness by by 12:40:58 Oxygen etCO2 4 Sridhar Zapata used for Nasal l/min Caty Davalos RN procedure cannula 12:51:17 Lidocaine 1% added 20ml Sridhar Zapata used for to vial Caty Davalos RN procedure field 12:51:41 Heparin Flush added 3 Sridhar Waller used for Bag to bags Caty Byrne procedure (1000units/500ml field MD HILARIO NS) 12:53:50 Ancef (1Gm/50ml I.V.P.B 1 g Sridhar Jodi used for NS) Caty Davalos RN procedure 13:00:30 albumin I.V. g Sridhar Zapata Per Caty Davalos RN protocol 13:20:56 ALBUMIN IV 1 GM Sridhar Zapata Per Caty Davalos RN protocol Procedure Log Time Note 12:05:39 Patient Height : 66 inches 12:05:43 Patient Weight : 240 lbs 12:06:30 Use device set IR Diagnostic 12:06:32 Tegaderm 4 x 4 (1626W) opened to sterile field. 12:06:33 Sterile Angiographic Pack opened to sterile field. 12:06:34 Bag Decanter (2002S) opened to sterile field. 12:06:36 ACIST Manifold (23909) opened to sterile field. 12:06:37 ACIST Hand Control (39277) opened to sterile field. 12:06:38 ACIST Syringe (17239) opened to sterile field. 12:07:22 DOC .035 wire (P79983) opened to sterile field. 12:07:23 TUBING Contrast Injection High Pressure (TRO646L) opened to sterile field. 12:07:24 TUBING Contrast Injection High Pressure (PVC147T) opened to sterile field. 12:07:25 KIT, TRANSJUGULAR LIVER ACCESS R opened to sterile field. 12:07:26 PERCUTANEOUS ENTRY 19GA needle opened to sterile field. 12:07:33 - 12:16:20 Time tracking: Regular hours (M-F 7:00 - 5:00) 12:32:36 Plan of Care:Hemodynamics will remain stable., Cardiac rhythm will remain stable., Comfort level will be maintained., Respiratory function will remain adequate., Patient/ family verbilizes understanding of procedure., Procedure tolerated without complication., Recovers from procedure without complications.. 12:32:56 Patient received from Outpatients to IR Alert and oriented. Tansferred to table in Supine position. 12:33:00 Warm blankets applied, and arron hugger turned on for patient comfort. 12:33:02 Correct patient and procedure confirmed by team. 12:33:05 Signed procedure consent form obtained from patient. 12:33:07 ECG and BP/O2 sat monitors applied to patient. 12:33:11 Baseline sample Acquired. 12:33:15 Full Disclosure recording started 12:33:16 - 12:33:24 H&P Date Dictated: 08/02/2018 Within 30 days and on chart.. 12:33:26 Pre-procedure instructions explained to patient. 12:33:27 Pre-op teaching completed and patient verbalized understanding. 12:33:30 Family unavailable. 12:33:33 Patient NPO since Midnight. 12:33:44 Patient allergic to No known allergies 12:33:49 Is the patient allergic to Iodine/contrast media? No. 12:33:56 Is patient on blood thinner?No 12:34:02 ----Pre-sedation anethsthesia assessment.----see anesthesia notes for monitoring of patient during procedure 12:34:31 - 12:34:41 [id number]-C-[id number] 8FR CATH DRAIN TRAY opened to sterile field. 12:34:58 IV patent on arrival in left forearm with D5/.45%NaCl at KVO. 12:35:15 Right neck area was prepped with chlora-prep and draped in sterile fashion 12:35:21 Right abdomen area was prepped with chlora-prep and draped in sterile fashion 12:35:47 paracentesis to be performed as well 12:40:58 Oxygen 4 l/min etCO2 Nasal cannula was administered by Jodi Davalos RN; used for procedure; 12:42:45 Physician arrived 12:42:46 --------ALL STOP TIME OUT------ 12:42:47 Final Timeout: patient, procedure, and site verified with staff and physician. All members of the team are in agreement. 12:47:46 Procedure started. 12:47:53 Local anesthetic to right IJ vein with Lidocaine 1% by Sridhar Byrne MD.INITIAL ACCESS ONLY 12:47:57 Venous access obtained using ultrasound guidance. 12:49:07 Latif 180 wire (S40956) opened to sterile field. 12:51:17 Lidocaine 1% 20ml vial added to field was administered by Jodi Davalos RN; used for procedure; 12:51:41 Heparin Flush Bag (1000units/500ml NS) 3 bags added to field was administered by Sridhar Byrne MD; used for procedure; 12:53:02 patient being monitered on anesthesia machine 12:53:50 Ancef (1Gm/50ml NS) 1 g I.V.P.B was administered by Jodi Davalos RN ; used for procedure; 12:58:52 GLIDE CATHETER 5FR Sewing Demonstrator H1 100cm (CG513) opened to sterile field. 12:58:53 LATIF 260 wire (P34492) opened to sterile field. 13:00:12 ROADRUNNER .035 145 glide wire (T91834) opened to sterile field. 13:00:30 albumin g I.V. was administered by Jodi Davalos RN; Per protocol; 13:08:26 GLIDE CATHETER 5FR COBRA 65cm (CG502) opened to sterile field. 13:10:33 A [employer] ULTRA BOLUS FLUSH 5Fr 90CM catheter ([id number]) was advanced over the wire and used for . 13:13:31 Zero performed for pressure channel P1 13:20:02 AMPLATZ Short Taper 260cm wire ([id number]) opened to sterile field. 13:20:13 INFLATOR BasixTOUCH (SR3256) opened to sterile field. 13:20:44 Inflate balloon Inflation number: 1 A Evercross 10 x 40 x 135 Balloon ([id number]) was prepped and advanced across the Undefined1, then inflated . 13:20:56 ALBUMIN 1 GM IV was administered by Jodi Davalos RN; Per protocol; 13:26:19 Zero performed for pressure channel P1 13:28:07 Zero performed for pressure channel P1 13:28:13 Zero performed for pressure channel P1 13:35:40 Inflate balloon Inflation number: 2 A Evercross 12 x 40 x 135 ([id number]) was prepped and advanced across the Undefined1, then inflated. 13:42:02 Zero performed for pressure channel P1 13:42:52 Zero performed for pressure channel P1 13:43:10 Zero performed for pressure channel P1 13:44:23 Zero performed for pressure channel P1 13:49:35 Procedure ended.(Physican Out) 13:49:54 Fluoroscopy time 13.30 minutes. 13:49:58 Fluoroscopy dose: 931 mGy 13:49:58 Flurop Dose total: 931 13:52:53 Contrast amount:Isovue 300 105ml. 13:52:58 Procedure and supply charges have been captured, reviewed, submitted an d are correct. 13:54:13 Report given to PCU. 13:58:26 Full Disclosure recording stopped Intervention Summary Intervention Notes Time ActionType Lesion and Equipment Used Action# Pressure Duration Attributes 13:20:44 Inflate Undefined1 Evercross 10 x 1 0 00:00 balloon 40 x 135 Balloon ([id number]) 13:35:40 Inflate Undefined1 Evercross 12 x 2 0 00:00 balloon 40 x 135 ([id number]) Device Usage Item Name Manufacture Quantity Catalog Number Hospital Part Current M inimal Lot# / Charge Number Stock Stock Serial# Code Tegaderm 4 x 4 3M 1 [id number] [id number] 212029 5 (1626W) Sterile Cardinal 1 [id number] 291770 752306 5 Angiographic Health Pack Bag Decanter Microtek 1 2001S 299949 45250 813686 5 (2001S) Medical Inc. ACIST Manifold Acist 1 85845 386004 279482 914287 5 (88562) [employer] Systems Inc ACIST Hand Acist 1 45654 598668 023974 896294 5 Control (51758) [employer] Inc ACIST Syringe Acist 1 38499 711744 480859 073115 2 0 (20367) Medical Systems Inc DOC .035 wire [employer] 1 B23683 563292 276881 5 (X09238) TUBING Contrast Merit 2 [id number] 651012 732702 130594 5 Injection High Medical Pressure (BSK487W) KIT, [employer] 1 B22963 672980 353655 5 [id number] TRANSJUGULAR LIVER ACCESS R PERCUTANEOUS [employer] 1 E12476 303141 811639 5 [id number] ENTRY 19GA needle [id number] CareFusion 1 [id number] 807587 016985 5 8FR CATH DRAIN TRAY Latif 180 wire [employer] 1 R58336 043050 696756 9942748 5 8211886 ([id number]) GLIDE CATHETER [place] 1 CG513 951489 571644 5 5FR Sewing Demonstrator Scientific H1 100cm (CG513) LATIF 260 wire [employer] 1 F78382 622830 43011 991260 5 2398246 (L74604) ROADRUNNER .035 [employer] 1 A23277 392775 899726 667320 5 [id number] 145 glide wire (B32282) GLIDE CATHETER [employer] 1 CG502 197523 040739 5 5FR COBRA 65cm (CG502) Merit ULTRA Merit 1 [id number] 839435 348753 5 BOLUS FLUSH 5Fr Medical 90CM catheter ([id number]) AMPLATZ Short [place] 1 [id number] 809640 632258 559970 5 Taper 260cm Scientific wire ([id number]) INFLATOR Merit 1 ZP2554 496454 886889 165224 5 Algaeon (PX0234) Evercross 10 x Medtronic 1 [id number] 942604 850111 031500 5 [id number] 40 x 135 Balloon ([id number]) Evercross 12 x Medtronic 1 [id number] 346145 511600 022081 5 [id number] 40 x 135 ([id number]) Signature Audit Venetie Stage Time Signature Unsigned Intra-Procedure 08/02/2018 Clara Aviles [facility] RT 1:58:18 PM RT(R) (R) (CV) 08/02/2018 2:17:25 PM Intra-Procedure 08/02/2018 Clara Brooks 2:18:18 PM RT(R) [facility] [address] [place] [address]
[2018-08-02 10:03] LABS: ALBUMIN 2.9 g/dL (3.4-5.0); ALKALINE PHOSPHATASE 240 U/L (46-116); ALT (SGPT) 40 U/L (10-68); BILIRUBIN - DIRECT 0.49 mg/dL (0.00-0.30); BILIRUBIN - INDIRECT 0.69 mg/dL (0.00-1.00); BILIRUBIN - TOTAL 1.18 mg/dL (0.2-1.3); CALC OSMOLALITY 276 mosm/kg (275-300); CALCIUM 8.5 mg/dL (8.5-10.1); CARBON DIOXIDE 26.6 mmol/L (21.0-32.0); CHLORIDE - SERUM 102 mmol/L (98-107); CREATININE - SERUM 0.6 mg/dL (0.6-1.3); POTASSIUM - SERUM 3.9 mmol/L (3.5-5.1); PROTEIN - SERUM 7.8 g/dL (6.4-8.2); SODIUM 138 mmol/L (136-145); UREA NITROGEN 8 mg/dL (7-18); eGFR NON AFRICAN AMERICAN > 90 mL/min (90-120)
[2018-08-02 10:04] LABS: GLUCOSE 148 mg/dL (74-106)
[2018-08-02 10:05] LABS: APTT 34.5 SECONDS (22.8-39.4); INR 1.21 (0.85-1.17); PROTIME 14.8 SECONDS (11.6-15.0)
[2018-08-02] MEDS ORDERED: POLY-VI-SOL W/I50 ML PO (10:45)
[2018-08-02 10:58] VITALS: BMI 38.8
[2018-08-02 11:09] LABS: HEMATOCRIT 38.5 % (42.0-54.0); LYMPHOCYTES 22.6 % (15-50); MCHC 31.2 g/dL (31.0-37.0); MCV 77.2 fL (80.0-100.0); MEAN PLATELET VOLUME 10.7 fL (7.4-10.4); NEUTROPHILS 69.2 % (40-80); RBC 4.99 10x6/uL (4.20-6.10); RDW 15.3 % (11.5-14.5)
[2018-08-02 11:10] LABS: PLATELET COUNT 134 10x3/uL (130-400)
--- NOTE | 2018-08-02 15:15 | NUR ---
REC'D TO ROOM 2212 VIA STRETCHER ACCOMPAINED BY RECOVERY STAFF. RESP EVEN AND UNLABORED WITH NO DISTRESS NOTED. DRESSING CLEAN DRY AND INTACT TO LEFT SIDE OF NECK. HOB @ 90* SEBLE. CAN EXPRESS SOME NEEDS AND WANTS. DENIES ANY PAIN OR DISCOMFORT AT THIS TIME. C/L IN REACH AT BEDSIDE.
[2018-08-02 15:16] VITALS: BP 108/65
[2018-08-02 18:15] VITALS: BP 108/65; Ht 167.6 cm; Wt 109.1 kg
--- NOTE | 2018-08-02 19:45 | NUR ---
PT SITTING UP IN BED, NO SIGNS OF DISTRESS. ALERT AND ORIENTED. PT STATES NO PAIN AT THIS TIME, JUST "SORENESS". STATES NO NEEDS OR COMLAINTS. CL IN REACH, WILL CONTINUE TO MONITOR
[2018-08-02 20:53] VITALS: BP 135/53
[2018-08-03 01:11] VITALS: BP 154/54
[2018-08-03 04:51] VITALS: BP 120/48
--- NOTE | 2018-08-03 06:11 | NUR ---
DR. ROCHA CALLED FOR CRITICAL AMMONIA OF 102. ORDERED CHRONULAC BID TO CHANGE TO TID
--- NOTE | 2018-08-03 07:30 | NUR ---
REC'D IN BED AWAKE AND ALERT. RESP EVEN AND UNLABORED WITH NO DISTRESS CAN EXPRESS NEEDS AND WANTS. DENIES ANY PAIN OR DISCOMFORT AT THIS TIME. ASSESSMENT COMPLETED. C/L IN REACH AT BEDSIDE.
[2018-08-03 09:43] VITALS: BP 101/48
--- NOTE | 2018-08-03 18:33 | NUR ---
PT DC HOME VOICE UNDERSTANDING OF DC INSTRUCTIONS. IV DC . STABLE CONDITION UPON DEPARTURE.
== END 2018-08-03 18:48 | disposition home or self-care (01) ==
LOC: D.SP 09:24 → D.RAD 12:00 → D.MS 14:35 → D.SP 08-03 18:48
PROVIDERS: Specialist
DX: T85.9XXA Unspecified complication of internal prosthetic device, implant and graft, initial encounter (principal); R18.8 Other ascites; Z01.812 Encounter for preprocedural laboratory examination

== ENCOUNTER → 2018-08-14 07:44 | Outpatient (CLI) | payer MEDICAID ==
[2018-08-02 18:15] VITALS: BMI 38.8
[~2018-08-14 07:44] MED LIST changes: +POLY-VI-SOL W/I50 ML PO
[2018-08-14 08:19] LABS: BILIRUBIN - DIRECT 0.39 mg/dL (0.00-0.30); BILIRUBIN - INDIRECT 0.76 mg/dL (0.00-1.00); BILIRUBIN - TOTAL 1.15 mg/dL (0.2-1.3); PROTEIN - SERUM 7.9 g/dL (6.4-8.2)
== END | disposition home or self-care (01) ==
LOC: D.LAB 07:44
PROVIDERS: Specialist
DX: K74.60 Unspecified cirrhosis of liver (principal)

== ENCOUNTER → 2018-12-24 07:20 | Outpatient (CLI) | payer MEDICAID ==
[2018-08-02 18:15] VITALS: BMI 38.8
== END | disposition home or self-care (01) ==
LOC: D.US 07:20
PROVIDERS: ATTEND Specialist
DX: K74.60 Unspecified cirrhosis of liver (principal)

== ENCOUNTER 2019-01-16 08:08 | Outpatient (CLI) | payer MEDICAID ==
[~2019-01-16] VITALS: Ht 167.6 cm; Wt 107.3 kg
[2019-01-16 08:23] LABS: HEMATOCRIT 40.1 % (42.0-54.0); HEMOGLOBIN 13.2 g/dL (13.5-17.5); MCH 26.4 pg (26.0-34.0); MCHC 32.9 g/dL (31.0-37.0); MCV 80.2 fL (80.0-100.0); RDW 18.5 % (11.5-14.5); WBC 2.8 10x3/uL (4.8-10.8)
[2019-01-16 08:41] LABS: PLATELET COUNT 64 10x3/uL (130-400)
[2019-01-16 08:42] LABS: APTT 35.2 SECONDS (22.8-39.4); CALC OSMOLALITY 278 mosm/kg (275-300); CALCIUM 8.8 mg/dL (8.5-10.1); CARBON DIOXIDE 27.6 mmol/L (21.0-32.0); CHLORIDE - SERUM 102 mmol/L (98-107); CREATININE - SERUM 0.8 mg/dL (0.6-1.3); GLUCOSE 117 mg/dL (74-106); INR 1.37 (0.85-1.17); PROTIME 16.3 SECONDS (11.6-15.0); SODIUM 139 mmol/L (136-145); UREA NITROGEN 12 mg/dL (7-18); eGFR NON AFRICAN AMERICAN > 90 mL/min (90-120)
[2019-01-16 09:36] LABS: BASOPHILS 1 % (0-2); LYMPHOCYTES 28 % (15-50); MONOCYTES 12 % (2-11); NEUTROPHILS 59 % (40-80); PLATELET ESTIMATE DECREASED
[2019-01-16 09:38] LABS: ANISOCYTOSIS OCC
[2019-01-16 09:51] VITALS: BP 111/72; Ht 167.6 cm; Wt 107.3 kg
[2019-01-16] MEDS ORDERED: FUROSEMIDE20 MG PO (09:57)
[2019-01-16] MEDS ORDERED: XIFAXAN200 MG PO (09:59)
[2019-01-16 11:48] LABS: ALBUMIN 3.4 g/dL (3.4-5.0); ALKALINE PHOSPHATASE 309 U/L (46-116); ALT (SGPT) 46 U/L (10-68); PROTEIN - SERUM 7.9 g/dL (6.4-8.2)
--- NOTE | 2019-01-16 14:36 | NUR ---
1345 IV REMOVED AND DC INSTRUCTIONS GIVEN
== END 2019-01-16 14:00 | disposition home or self-care (01) ==
LOC: D.SP 08:08 → D.CT 11:00 → D.SP 11:00
PROVIDERS: ATTEND Specialist
DX: R18.8 Other ascites (principal); K74.60 Unspecified cirrhosis of liver; Z01.812 Encounter for preprocedural laboratory examination

== ENCOUNTER 2019-05-08 07:22 | Outpatient (CLI) | payer MEDICAID ==
[~2019-05-08] VITALS: Ht 167.6 cm; Wt 102.7 kg
[~2019-05-08 07:22] MED LIST changes: +FUROSEMIDE20 MG PO; +XIFAXAN200 MG PO
[2019-05-08 07:51] LABS: BASOPHILS 0.5 % (0-2); EOSINOPHILS 1.2 % (0-7); HEMOGLOBIN 13.3 g/dL (13.5-17.5); LYMPHOCYTES 12.5 % (15-50); MCH 29.4 pg (26.0-34.0); MCHC 32.4 g/dL (31.0-37.0); MCV 90.5 fL (80.0-100.0); MEAN PLATELET VOLUME 10.9 fL (7.4-10.4); MONOCYTES 8.1 % (2-11); NEUTROPHILS 77.7 % (40-80); RBC 4.53 10x6/uL (4.20-6.10); RDW 17.3 % (11.5-14.5); WBC 4.3 10x3/uL (4.8-10.8)
[2019-05-08 07:52] LABS: PLATELET COUNT 96 10x3/uL (130-400)
[2019-05-08 08:05] LABS: APTT 32.6 SECONDS (22.8-39.4); INR 1.2 (0.85-1.17); PROTIME 14.7 SECONDS (11.6-15.0)
[2019-05-08 08:07] LABS: ALBUMIN 3.2 g/dL (3.4-5.0); ALKALINE PHOSPHATASE 366 U/L (46-116); ALT (SGPT) 44 U/L (10-68); BILIRUBIN - TOTAL 1.65 mg/dL (0.2-1.3); CALC OSMOLALITY 278 mosm/kg (275-300); CALCIUM 8.3 mg/dL (8.5-10.1); CARBON DIOXIDE 28.7 mmol/L (21.0-32.0); CHLORIDE - SERUM 104 mmol/L (98-107); CREATININE - SERUM 0.5 mg/dL (0.6-1.3); GLUCOSE 148 mg/dL (74-106); POTASSIUM - SERUM 4.2 mmol/L (3.5-5.1); PROTEIN - SERUM 7.5 g/dL (6.4-8.2); SODIUM 139 mmol/L (136-145); UREA NITROGEN 8 mg/dL (7-18); eGFR NON AFRICAN AMERICAN > 90 mL/min (90-120)
[2019-05-08 08:12] LABS: PLATELET ESTIMATE DECREASED
[2019-05-08] MEDS ORDERED: LISINOPRIL40 MG PO (08:43)
[2019-05-08] MEDS ORDERED: NEURONTIN 300300 MG PO (08:44)
[2019-05-08 08:50] VITALS: BP 141/87; Ht 167.6 cm; Wt 102.7 kg
--- NOTE | 2019-05-08 11:20 | NUR ---
1045 SEE POST PROCEDURE CHECKLIST FOR VITAL SIGN TRENDS. 1105 ANNE MARIE AHN RN ROUNDS ON PT. LAB HERE FOR DRAW.
== END 2019-05-08 12:56 | disposition home or self-care (01) ==
LOC: D.SP 07:22
PROVIDERS: ATTEND Specialist
DX: K74.60 Unspecified cirrhosis of liver (principal); R18.8 Other ascites

== ENCOUNTER 2019-05-14 10:00 | Outpatient (CLI) | payer MEDICAID ==
[~2019-05-14] VITALS: Ht 167.6 cm; Wt 97.3 kg
[~2019-05-14 10:00] MED LIST changes: +LISINOPRIL40 MG PO; +NEURONTIN 300300 MG PO
[2019-05-14 10:14] LABS: BASOPHILS 0.8 % (0-2); EOSINOPHILS 0.8 % (0-7); HEMATOCRIT 44.6 % (42.0-54.0); HEMOGLOBIN 14.5 g/dL (13.5-17.5); IMMATURE GRANULOCYTES 0.3 % (0-5); LYMPHOCYTES 13.2 % (15-50); MCH 29.6 pg (26.0-34.0); MCHC 32.5 g/dL (31.0-37.0); MEAN PLATELET VOLUME 10.5 fL (7.4-10.4); MONOCYTES 8.5 % (2-11); NEUTROPHILS 76.4 % (40-80); PLATELET COUNT 112 10x3/uL (130-400); RDW 16.5 % (11.5-14.5); WBC 3.9 10x3/uL (4.8-10.8)
[2019-05-14 10:29] LABS: APTT 34.7 SECONDS (22.8-39.4); CALC OSMOLALITY 272 mosm/kg (275-300); CALCIUM 8.7 mg/dL (8.5-10.1); CARBON DIOXIDE 27.7 mmol/L (21.0-32.0); CHLORIDE - SERUM 101 mmol/L (98-107); CREATININE - SERUM 0.6 mg/dL (0.6-1.3); GLUCOSE 124 mg/dL (74-106); INR 1.2 (0.85-1.17); POTASSIUM - SERUM 3.9 mmol/L (3.5-5.1); PROTIME 14.7 SECONDS (11.6-15.0); SODIUM 136 mmol/L (136-145); UREA NITROGEN 13 mg/dL (7-18); eGFR NON AFRICAN AMERICAN > 90 mL/min (90-120)
[2019-05-14 10:41] VITALS: BP 121/85; Ht 167.6 cm; Wt 97.3 kg
[2019-05-14 15:55] LABS: MACROPHAGES BF 2 %; MESOTHELIALS BF 6 %; NEUT - BF 3 %
--- NOTE | 2019-05-14 16:52 | NUR ---
1540 IV REMOVED AND PRESSURE HELD. DRESSING APPLIED. INSTRUCTIONS GIVEN. 1600 RESULTS OF CXR NOTED NO PNUMOTHORAX,
== END 2019-05-14 17:16 | disposition home or self-care (01) ==
LOC: D.SP 10:00 → D.CT 13:00 → D.SP 17:16
PROVIDERS: ATTEND Specialist
DX: J90 Pleural effusion, not elsewhere classified (principal)

== ENCOUNTER 2019-05-23 05:52 | Outpatient (CLI) | payer MEDICAID ==
[~2019-05-23] VITALS: Ht 167.6 cm; Wt 100.5 kg
[2019-05-23 06:16] LABS: BASOPHILS 0.6 % (0-2); EOSINOPHILS 2.9 % (0-7); HEMATOCRIT 42.5 % (42.0-54.0); HEMOGLOBIN 13.6 g/dL (13.5-17.5); IMMATURE GRANULOCYTES 0.3 % (0-5); LYMPHOCYTES 12.3 % (15-50); MCH 29.2 pg (26.0-34.0); MCV 91.4 fL (80.0-100.0); MEAN PLATELET VOLUME 10.4 fL (7.4-10.4); MONOCYTES 10.9 % (2-11); PLATELET COUNT 122 10x3/uL (130-400); RBC 4.65 10x6/uL (4.20-6.10); RDW 15.7 % (11.5-14.5); WBC 3.5 10x3/uL (4.8-10.8)
[2019-05-23 06:30] LABS: INR 1.16 (0.85-1.17); PROTIME 14.3 SECONDS (11.6-15.0)
[2019-05-23 06:31] LABS: APTT 35.9 SECONDS (22.8-39.4)
[2019-05-23 06:34] LABS: ALBUMIN 3.1 g/dL (3.4-5.0); ALKALINE PHOSPHATASE 345 U/L (46-116); ALT (SGPT) 40 U/L (10-68); BILIRUBIN - TOTAL 0.93 mg/dL (0.2-1.3); CALC OSMOLALITY 278 mosm/kg (275-300); CALCIUM 8.3 mg/dL (8.5-10.1); CARBON DIOXIDE 27.7 mmol/L (21.0-32.0); CHLORIDE - SERUM 104 mmol/L (98-107); CREATININE - SERUM 0.5 mg/dL (0.6-1.3); GLUCOSE 150 mg/dL (74-106); POTASSIUM - SERUM 3.8 mmol/L (3.5-5.1); PROTEIN - SERUM 7.5 g/dL (6.4-8.2); SODIUM 140 mmol/L (136-145); UREA NITROGEN 5 mg/dL (7-18); eGFR NON AFRICAN AMERICAN > 90 mL/min (90-120)
[2019-05-23 07:18] VITALS: BP 131/77; Ht 167.6 cm; Wt 100.5 kg
== END 2019-05-23 12:15 | disposition home or self-care (01) ==
LOC: D.SP 05:52
PROVIDERS: Radiology Vascular & Interventional Radiology; ATTEND Family Medicine
DX: R18.8 Other ascites (principal)

== ENCOUNTER 2019-06-27 08:00 | Outpatient (CLI) | payer MEDICAID ==
[~2019-06-27] VITALS: Ht 167.6 cm; Wt 101.8 kg
[2019-06-27 08:31] LABS: ALBUMIN 3.1 g/dL (3.4-5.0); ALKALINE PHOSPHATASE 401 U/L (46-116); ALT (SGPT) 38 U/L (10-68); CALC OSMOLALITY 286 mosm/kg (275-300); CALCIUM 8.5 mg/dL (8.5-10.1); CARBON DIOXIDE 27.4 mmol/L (21.0-32.0); CHLORIDE - SERUM 106 mmol/L (98-107); CREATININE - SERUM 0.6 mg/dL (0.6-1.3); GLUCOSE 126 mg/dL (74-106); POTASSIUM - SERUM 3.9 mmol/L (3.5-5.1); PROTEIN - SERUM 7.9 g/dL (6.4-8.2); SODIUM 143 mmol/L (136-145); UREA NITROGEN 12 mg/dL (7-18); eGFR NON AFRICAN AMERICAN > 90 mL/min (90-120)
[2019-06-27 08:38] LABS: APTT 34.3 SECONDS (22.8-39.4); INR 1.15 (0.85-1.17); PROTIME 14.2 SECONDS (11.6-15.0)
[2019-06-27 08:54] LABS: HEMATOCRIT 38.9 % (42.0-54.0); HEMOGLOBIN 12.5 g/dL (13.5-17.5); MCH 27.4 pg (26.0-34.0); MCHC 32.1 g/dL (31.0-37.0); MCV 85.3 fL (80.0-100.0); MEAN PLATELET VOLUME 10.3 fL (7.4-10.4); RBC 4.56 10x6/uL (4.20-6.10); RDW 14.8 % (11.5-14.5); WBC 2.8 10x3/uL (4.8-10.8)
[2019-06-27 08:55] LABS: PLATELET COUNT 81 10x3/uL (130-400)
[2019-06-27 09:52] LABS: EOSINOPHILS 2 % (0-7); HYPOCHROMASIA OCC; LYMPHOCYTES 20 % (15-50); MONOCYTES 7 % (2-11); NEUTROPHILS 67 % (40-80); PLATELET ESTIMATE DECREASED; ROULEAUX OCC
[2019-06-27 10:39] VITALS: Ht 167.6 cm; Wt 101.8 kg
== END 2019-06-27 13:05 | disposition home or self-care (01) ==
LOC: D.OPS 08:00 → D.CT 11:00 → D.OPS 13:05 → D.CT 07-03 10:00
PROVIDERS: ATTEND Specialist
DX: K74.60 Unspecified cirrhosis of liver (principal); R18.8 Other ascites

== ENCOUNTER 2019-10-02 10:47 | Emergency (ER) | payer MEDICAID ==
[~2019-10-02] VITALS: Ht 167.6 cm; Wt 85.9 kg
[2019-10-02 10:55] VITALS: Ht 167.6 cm; Wt 85.9 kg
[2019-10-02 12:32] LABS: BASOPHILS 0.6 % (0-2); EOSINOPHILS 1.9 % (0-7); HEMATOCRIT 38.9 % (42.0-54.0); HEMOGLOBIN 13.2 g/dL (13.5-17.5); IMMATURE GRANULOCYTES 0.3 % (0-5); LYMPHOCYTES 28.7 % (15-50); MCHC 33.9 g/dL (31.0-37.0); MCV 88.4 fL (80.0-100.0); MEAN PLATELET VOLUME 9.6 fL (7.4-10.4); NEUTROPHILS 60.5 % (40-80); PLATELET COUNT 73 10x3/uL (130-400); RDW 14.8 % (11.5-14.5); WBC 3.6 10x3/uL (4.8-10.8)
[2019-10-02 12:41] LABS: CALC OSMOLALITY 283 mosm/kg (275-300); CALCIUM 9.1 mg/dL (8.5-10.1); CARBON DIOXIDE 24.5 mmol/L (21.0-32.0); CHLORIDE - SERUM 105 mmol/L (98-107); CREATININE - SERUM 0.6 mg/dL (0.6-1.3); GLUCOSE 135 mg/dL (74-106); POTASSIUM - SERUM 4.1 mmol/L (3.5-5.1); SODIUM 141 mmol/L (136-145); UREA NITROGEN 15 mg/dL (7-18); eGFR NON AFRICAN AMERICAN > 90 mL/min (90-120)
[2019-10-02 13:01] LABS: ALBUMIN 3.8 g/dL (3.4-5.0); ALKALINE PHOSPHATASE 341 U/L (30-120); ALT (SGPT) 59 U/L (10-68); BILIRUBIN - TOTAL 0.96 mg/dL (0.2-1.3); MAGNESIUM - SERUM 2.2 mg/dL (1.8-2.4); PROTEIN - SERUM 8.2 g/dL (6.4-8.2)
[2019-10-02 13:05] LABS: UDS - AMPHET NEGATIVE QUAL (NEGATIVE); UDS - BARB NEGATIVE QUAL (NEGATIVE); UDS - BENZO NEGATIVE QUAL (NEGATIVE); UDS - COCAINE NEGATIVE QUAL (NEGATIVE); UDS - OPIATE NEGATIVE QUAL (NEGATIVE); UDS - PCP NEGATIVE QUAL (NEGATIVE); UDS - THC NEGATIVE QUAL (NEGATIVE)
[2019-10-02 13:20] LABS: BILIRUBIN NEGATIVE (NEGATIVE); GLUCOSE NEGATIVE (NEGATIVE); KETONE NEGATIVE (NEGATIVE); NITRITE NEGATIVE (NEGATIVE); SPECIFIC GRAVITY 1.005 (1.005-1.020); UROBILINOGEN NORMAL (NORMAL)
[2019-10-02 14:59] LABS: ANISOCYTOSIS OCC; PLATELET ESTIMATE DECREASED; ROULEAUX OCC
[2019-10-02 16:58] VITALS: BP 96/48
== END 2019-10-02 17:14 | disposition home or self-care (01) ==
LOC: D.ER 10:47
PROVIDERS: Emergency Medicine
DX: F10.129 Alcohol abuse with intoxication, unspecified (principal); Y90.8 Blood alcohol level of 240 mg/100 ml or more; E11.40 Type 2 diabetes mellitus with diabetic neuropathy, unspecified; I10 Essential (primary) hypertension; K21.9 Gastro-esophageal reflux disease without esophagitis

== ENCOUNTER 2019-11-23 12:40 | Emergency (ER) | payer MEDICAID ==
[2019-11-23 12:43] VITALS: Ht 167.6 cm
[2019-11-23 13:07] LABS: BASOPHILS 0.7 % (0-2); EOSINOPHILS 1.3 % (0-7); HEMATOCRIT 40.8 % (42.0-54.0); HEMOGLOBIN 13.1 g/dL (13.5-17.5); IMMATURE GRANULOCYTES 0.3 % (0-5); LYMPHOCYTES 30.1 % (15-50); MCHC 32.1 g/dL (31.0-37.0); MCV 90.3 fL (80.0-100.0); MEAN PLATELET VOLUME 9.7 fL (7.4-10.4); MONOCYTES 5.3 % (2-11); NEUTROPHILS 62.3 % (40-80); RBC 4.52 10x6/uL (4.20-6.10); RDW 14.7 % (11.5-14.5)
[2019-11-23 13:12] LABS: PLATELET COUNT 98 10x3/uL (130-400)
[2019-11-23 13:16] LABS: APTT 34.9 SECONDS (22.8-39.4); INR 1.15 (0.85-1.17); PROTIME 14.6 SECONDS (11.6-15.0)
[2019-11-23 13:18] LABS: CALC OSMOLALITY 292 mosm/kg (275-300); CALCIUM 7.9 mg/dL (8.5-10.1); CARBON DIOXIDE 27.1 mmol/L (21.0-32.0); CHLORIDE - SERUM 106 mmol/L (98-107); CREATININE - SERUM 0.7 mg/dL (0.6-1.3); GLUCOSE 136 mg/dL (74-106); POTASSIUM - SERUM 3.4 mmol/L (3.5-5.1); SODIUM 147 mmol/L (136-145); UREA NITROGEN 11 mg/dL (7-18); eGFR NON AFRICAN AMERICAN > 90 mL/min (90-120)
[2019-11-23 13:33] LABS: ALBUMIN 3.3 g/dL (3.4-5.0); ALKALINE PHOSPHATASE 265 U/L (30-120); ALT (SGPT) 55 U/L (10-68); BILIRUBIN - TOTAL 0.79 mg/dL (0.2-1.3); CKMB 1.1 U/L (0.0-3.6); CREATINE KINASE 174 UL (21-232); MAGNESIUM - SERUM 2.1 mg/dL (1.8-2.4); PROTEIN - SERUM 7.8 g/dL (6.4-8.2)
[2019-11-23 13:35] LABS: TROPONIN-I < 0.017 ng/mL (0.000-0.060)
[2019-11-23 13:49] LABS: UDS - AMPHET NEGATIVE QUAL (NEGATIVE); UDS - BARB NEGATIVE QUAL (NEGATIVE); UDS - BENZO NEGATIVE QUAL (NEGATIVE); UDS - COCAINE NEGATIVE QUAL (NEGATIVE); UDS - OPIATE NEGATIVE QUAL (NEGATIVE); UDS - PCP NEGATIVE QUAL (NEGATIVE); UDS - THC NEGATIVE QUAL (NEGATIVE)
[2019-11-23 19:05] VITALS: BP 122/68
== END 2019-11-23 19:05 | disposition home or self-care (01) ==
LOC: D.ER 12:40
PROVIDERS: Emergency Medicine
DX: F10.121 Alcohol abuse with intoxication delirium (principal); Y90.8 Blood alcohol level of 240 mg/100 ml or more; V89.2XXA Person injured in unspecified motor-vehicle accident, traffic, initial encounter; Y93.9 Activity, unspecified; Y92.9 Unspecified place or not applicable; R55 Syncope and collapse; E11.40 Type 2 diabetes mellitus with diabetic neuropathy, unspecified; R41.82 Altered mental status, unspecified; I10 Essential (primary) hypertension; K21.9 Gastro-esophageal reflux disease without esophagitis